=== PATIENT | female | born 1950 | race Caucasian/White ===

== ENCOUNTER 2023-08-11 07:32 | Outpatient (OUT) | payer MEDICARE, OTHER, SELFPAY ==
[2023-08-11 08:01] LABS: Basophils Absolute Auto 0.1 10^3/uL (0.0-0.1); Basophils Percent Auto 1.3 % (0.2-2.0); Eosinophils Absolute Auto 0.5 10^3/uL (0.0-0.7); Eosinophils Percent Auto 5.7 % (0.9-7.0); Hemoglobin 12.5 g/dL (12.0-16.0); Immature Granulocytes Abs Auto 0.04 10^3/uL (0.00-0.03); Immature Granulocytes Pct Auto 0.5 % (0.0-0.5); Mean Corpuscular HGB Conc 31.3 g/dL (29.9-35.2); Mean Corpuscular Hemoglobin 28.3 pg (26.7-34.0); Mean Corpuscular Volume 90.5 fL (81.0-99.0); Mean Platelet Volume 11.7 fL (9.5-13.5); Monocytes Absolute Auto 0.7 10^3/uL (0.3-0.8); Monocytes Percent Auto 8.5 % (1.7-12.0); Platelet Count 172 10^3/uL (150-450); Red Blood Count 4.42 10^6/uL (4.20-5.40); Red Cell Distribution Width 13.2 % (11.0-15.0); White Blood Count 8.4 10^3/uL (4.0-11.0)
[2023-08-11 08:41] LABS: Alanine Aminotransferase 35 U/L (14-59); Albumin Level 3.5 g/dL (3.4-5.0); Alkaline Phosphatase 95 U/L (46-116); Anion Gap 11.9; Aspartate Amino Transferase 23 U/L (15-37); Bilirubin Total 0.5 mg/dL (0.2-1.0); Calcium 9.1 mg/dL (8.5-10.1); Carbon Dioxide 30.5 mmol/L (21.0-32.0); Chloride 106 mmol/L (98-107); Chol HDL Ratio 2.6; Cholesterol 177 mg/dL (<=200); Estimated GFR (African America >60 (>=60); Estimated GFR (Non-African Ame 57 (>=60); Globulin 3.6 g/dL; Glucose 102 mg/dL (74-106); HDL Cholesterol 68 mg/dL (40-60); Potassium 4.4 mmol/L (3.5-5.1); Sodium 144 mmol/L (136-145); Total Protein 7.1 g/dL (6.4-8.2); Triglycerides 108 mg/dL (<=150); VLDL CHOLESTEROL 21.6 mg/dL
[2023-08-11 14:41] LABS: Estimated Average Glucose 128 mg/dL; Glycohemoglobin A1C 6.1 % (4.5-6.2)
== END 2023-08-11 07:33 | disposition home or self-care (01) ==
LOC: LAB 07:37
PROVIDERS: PCP Family Medicine; Visit Provider Family Medicine
DX: E11.40 Type 2 diabetes mellitus with diabetic neuropathy, unspecified (principal)
CPT/HCPCS: 36415; 80053; 80061; 83036; 85025

== ENCOUNTER 2023-09-27 09:01 | Outpatient (OUT) | payer MEDICARE, OTHER, SELFPAY ==
--- NOTE | 2023-09-27 | XR_ITS ---
[address] [address] Patient Name: KEERTHI KNAPP MRN: [id number] date: 1950 Sex: F Assigned Patient Location: Current Patient Location: Accession/Order Number: [id number] Exam Date: 09/27/2023 09:05 Report Date: 09/27/2023 09:26 At the request of: CHER ANDERSON Procedure: XR foot JUAN PABLO min 3V EXAMINATION: XR foot JUAN PABLO min 3V HISTORY: BILATERAL FOOT PAIN COMPARISON: No relevant comparison available. FINDINGS: RIGHT FINDINGS: BONES: No acute fracture or dislocation. Persistent flexion of the toes limits their evaluation. Severe degenerative changes of the first metatarsal-phalangeal joint with [id number] articulation SOFT TISSUES: Negative. No visible soft tissue swelling. OTHER: Negative. LEFT FINDINGS: BONES: No acute fracture or dislocation. Shortened appearance of the first toe likely developmental. Moderate degenerative changes at the second through fifth tarsometatarsal joints with joint space narrowing subchondral cystic changes. SOFT TISSUES: Negative. No visible soft tissue swelling. OTHER: Negative. XR/XR foot JUAN PABLO min 3V IMPRESSION: RIGHT CONCLUSION: Severe first metatarsal-phalangeal joint osteoarthritis LEFT CONCLUSION: Moderate to severe degenerative changes second through fifth tarsometatarsal joints Electronically authenticated by: SHANE LIND Date: 09/27/2023 09:26
== END 2023-09-27 09:02 | disposition home or self-care (01) ==
LOC: EC 09:01
PROVIDERS: PCP Family Medicine; Visit Provider Podiatrist Foot & Ankle Surgery
DX: M79.672 Pain in left foot (principal); M79.671 Pain in right foot; M19.071 Primary osteoarthritis, right ankle and foot
CPT/HCPCS: 73630

== ENCOUNTER 2023-09-30 07:25 | Outpatient (OUT) | payer MEDICARE, OTHER, SELFPAY ==
--- NOTE | 2023-09-30 | CT_ITS ---
The [address] [address] Patient Name: KEERTHI KNAPP MRN: [id number] date: 1950 Sex: F Assigned Patient Location: CT Current Patient Location: Accession/Order Number: [id number] Exam Date: 09/30/2023 07:42 Report Date: 10/02/2023 10:07 At the request of: CHER ANDERSON Procedure: CT foot LT wo con EXAMINATION: CT foot LT wo con HISTORY: Midfoot DJD ; left foot pain across metatarsal; no known injury COMPARISON: No relevant comparison available. TECHNIQUE: Multi-planar CT images were created without and/or with IV contrast according to examination type. Dose reduction techniques were achieved by using automated exposure control and/or adjustment of mA and/or kV according to patient size and/or use of iterative reconstruction technique. FINDINGS: BONES: Narrowing of the second through 5th tarsal-metatarsal joints with near [id number] contact, numerous subchondral cysts, and small periarticular degenerative osteophytes. Mild-moderate degenerative changes of the first metatarsophalangeal joint. Small calcaneal plantar spur. SOFT TISSUES: Negative. No visible soft tissue swelling. EFFUSION: None visible. OTHER: Negative. CT/CT foot LT wo con IMPRESSION: 1. Moderate to marked degenerative changes of the tarsal-metatarsal joints likely contributing patient's symptoms. 2. No appreciable acute bone abnormality. Electronically authenticated by: CHELSY ZALDIVAR Date: 10/02/2023 10:07
--- OUTSIDE RECORDS SUMMARY | 2023-09-30 07:27 | XMS_ITS | CCD ---
Author Organization [facility] Care Team Providers Care Protocol Officer Name Role Phone MJ MISHRA Unavailable Unavailable HOUSEKAUSHIK Unavailable Unavailable HouseKaushik Unavailable Unavailable Unavailable Unavailable Unavailable DO Kaushik Payan Primary Care Provider DO Kaushik Payan Attending Provider MD Demetrio Romero Jr Emergency Provider DO Virgil Hendrickson Emergency Provider [phone] DO Julio C Carlisle Emergency Provider [phone] MD Dat Torrez Attending Provider Dr. Kaushik Payan Elio Primary Care Unava ilable Tad, Dr. Marin Referring Unavaila tahmina Mishra, Dr. Marin Attending Unavaila ble PESHASTIN, DR FAULKNER Admitting Unavailable HOUSE, DR FAULKNER Attending Unavailable HOUSE, DR FAULKNER Primary Care Unavailable HOUSE, DR FAULKNER Consulting Unavailable DO Kaushik Payan Primary Care Provider MD Dat Torrez Attending Provider MD Dat Torrez Attending Provider [phone] DO Kaushik Payan Primary Care Provider [phone] Unavailable Primary Care Provider Unavailabl e Dat TORREZ Attending Unavailable Dat TORREZ Attending Unavailable Dat TORREZ Attending Unavailable Dat TORREZ Admitting Unavailable Dat TORREZ Attending Unavailable Dat Torrez Admitting Unavailable Dat Torrez Attending Unavailable Kaushik Payan Primary Care Unavailable Mj Mishra Admitting Unavailable Mj Mishra Attending Unavailable Kaushik Payan Primary Care Unavailable Dat Torrez Admitting Unavailable Dat Torrez Attending Unavailable Mason, Kaushik [facility] Care Unavailable Eulogio Hartley Admitting Unavailable Eulogio Hartley Attending Unavailable Mercedita, Kaushik Primary Care Unavailable Mercedita DO, Kaushik [facility] Primary Care Provider MJ MISHRA Attending Unavailable PESHASTIN, [facility] Primary [facility] Unavailab FEROZ Payne Attending Unavailable LIZA V, STEPHAN Admitting Unavailable LIZA V, STEPHAN Referring Unavailable LIZA V, STEPHAN Attending Unavailable LIZA V, STEPHAN Attending Unavailable LIZA V, STEPHAN Referring Unavailable HOUSE SR, [facility] Unavai lable LIZA V, STEPHAN Referring Unavailable PESHASTIN SR, [facility] Unavai lable LIZA V, STEPHAN Referring Unavailable LIZA V, STEPHAN Attending Unavailable LIZA V, STEPHAN Admitting Unavailable LIZA V, STEPHAN Referring Unavailable PESHASTIN, KAUSHIK P Attending Unavailable PESHASTIN, KAUSHIK P Primary Care Unavailable PESHASTIN, KAUSHIK Colon Attending Unavailable PESHASTIN, KAUSHIK Primary Care Unavailable Medications Current Medications Medication Drug Class(es) Dates Sig (Normalized) Sig (Original) acetaminophen 325 mg / HYDROcodone bitartrate 5 mg oral tablet (1 source) Opioid Agonist Start: 09-16-2022 take 1 tablet by mouth every four to six hours Hydrocodone-Acetam inophen Active 1 TAB PO EVERY 4-6 HOURS 10 September 16, 2022 atorvastatin 40 mg oral tablet (14 sources) HMG-CoA Reductase Inhibitor Start: 03-23-2019 take 1 tablet by mouth once daily at bedtime atorvastatin (Lipitor) 40 mg tablet Take 1 tablet (40 mg) by mouth once daily at bedtime. 0 05/14/2020 Active Comment on above: Take 40 mg by mouth daily at bedtime. cephalexin 500 mg oral capsule (5 sources) Cephalosporin Antibacterial Start: 09-16-2022 take 500 mg by mouth every twelve hours Cephalexin Active 500 MG PO Q12H 14 September 16, 2022 12:00am Start: 12-11-2021 take 500 mg by mouth twice daily Cephalexin Active 500 MG PO Twice daily 10 December 11, 2021 12:00am hydroCHLOROthiazide 12.5 mg oral tablet (15 sources) Thiazide Diuretic Start: 03-23-2019 take 1 tablet by mouth once daily hydroCHLOROthiazide (HYDRODiuril) 12.5 mg tablet Take 1 tablet (12.5 mg) by mouth once daily. 0 01/17/2020 Active Comment on above: Take 1 tablet by tej every afternoon. hydrocortisone 10 mg/ml topical cream (4 sources) Corticosteroid Start: 11-24-2021 Hydrocortisone Active 1 APPLIC TOPICAL Three times daily 28.4 November 24, 2021 12:00am ketorolac tromethamine 10 mg oral tablet (5 sources) Nonsteroidal Anti-inflammatory Drug, Cyclooxygenase Inhibitor Start: 09-16-2022 take 10 mg by mouth every eight hours Ketorolac Active 10 MG PO Q8H 10 September 16, 2022 12:00am Start: 12-11-2021 take 10 mg by mouth every six hours Ketorolac Active 10 MG PO Q6H 30 December 11, 2021 12:00am lisinopril 10 mg oral tablet (19 sources) Angiotensin Converting Enzyme Inhibitor Start: 08-11-2020 take 1 tablet by mouth once daily lisinopril 10 mg tablet Take 1 tablet (10 mg) by mouth once daily. 0 08/11/2020 Active Start: 03-23-2019 End: 10-20-2020 take 5 mg by mouth once daily Lisinopril Discontinued 5 MG PO Daily March 23, 2019 1:00am October 20, 2020 10:13am Comment on above: Take 1 tablet by [facility] every afternoon. meloxicam 15 mg oral tablet (15 sources) Nonsteroidal Anti-inflammatory Drug Start: 0 take 1 tablet by mouth once daily meloxicam (Mobic) 15 mg tablet Take 1 tablet (15 mg) by mouth once daily. 0 05/12/2020 Active Comment on above: Take 1 tablet by tej every afternoon. morphine sulfate 15 mg oral tablet (4 sources) Opioid Agonist Start: 2 take 7.5 mg by mouth every six hours Morphine Active 7.5 MG PO Q6H 4 December 11, 2021 ondansetron 4 mg oral tablet (9 sources) Serotonin-3 Receptor Antagonist Start: 3 Ondansetron Hcl Active 4 MG PO every 6 to 8 hours September 16, 2022 12:00am Start: 12-11-2021 take 4 mg by mouth e very six hours Ondansetron Active 4 MG PO Q6H December 11, 2021 12:00am Start: 10-21-2021 End: 12-11-2021 take 4 mg by mouth every eight hours Ondansetron Discontinued 4 MG PO Q8H October 21, 2021 12:00am December 11, 2021 10:52am tamsulosin hydrochloride 0.4 mg oral capsule (5 sources) alpha-Adrenergic Jerry Start: 12-11-2021 take 1 capsule by mouth once daily Tamsulosin (Flomax) 0.4 mg capsule Active 0.4 MG PO Daily September 16, 2022 12:00am Completed/Discontinued Medications Medication Drug Class(es) Dates Sig (Normalized) Sig (Original) benoxinate hydrochloride 4 mg/ml / fluorescein sodium 3 mg/ml ophthalmic solution (1 source) Diagnostic Dye Start: 03-07-2023 End: 03-08-2023 fluorescein-benox inate 0.3-0.4 % 1 Drop (FLURESS) diclofenac sodium 75 mg delayed release oral tablet (4 sources) Nonsteroidal Anti-inflammatory Drug Start: 03-23-2019 End: 03-24-2020 take 75 mg by mouth twice daily Diclofenac Sodium Discontinued 75 MG PO Twice daily March 23, 2019 1:00am March 24, 2020 2:14pm dicyclomine hydrochloride 20 mg oral tablet (4 sources) Anticholinergic Start: 07-12-2019 End: 03-24-2020 take 20 mg by mouth four times daily Dicyclomine Discontinued 20 MG PO Four times daily July 12, 2019 12:00am March 24, 2020 2:14pm hydrOXYzine hydrochloride 25 mg oral tablet (4 sources) Antihistamine Start: 11-24-2021 End: 12-11-2021 take 25 mg by mouth every eight hours Hydroxyzine Hcl Discontinued 25 MG PO Q8H November 24, 2021 12:00am December 11, 2021 10:52am metFORMIN hydrochloride 500 mg oral tablet (15 sources) Biguanide Start: 01-14-2023 metFORMIN (GLUCOPHAGE) 500 mg tablet Take 250 mg by mouth two times a day. 0 01/14/2023 Active Start: 05-11-2020 take 0.5 tablet by m outh twice daily at mealtime metFORMIN (Glucophage) 500 mg tablet Take 0.5 tablets (250 mg) by mouth 2 times a day with meals. 0 05/11/2020 Active Start: 05-11-2020 take 0.25 tablet by mouth twice daily metFORMIN HCl - 500 MG Oral Tablet TAKE 0.25 TABLET Twice daily Quantity: 0 Refills: 0 Ordered: 11-May-2020 DO Start : 11-May-2020 Active Start: 03-23-2019 take 250 mg by mouth twice luis armando ly Metformin Active 250 MG PO Twice daily March 23, 2019 1:00am Comment on above: Take 250 mg by mouth two times a day. nitrofurantoin, macrocrystals 25 mg / nitrofurantoin, monohydrate 75 mg oral capsule (4 sources) Nitrofuran Antibacterial Start: End: take 1 capsule by mouth every twelve hours at mealtime Nitrofurantoin Monohyd/M-Cryst (Macrobid) 100 mg capsule Discontinued 100 MG PO Q12H 10 October 21, 2021 12:00am December 11, 2021 10:52am administer with a meal/food; swallow whole; do not open, crush, dissolve , or chew phenylephrine hydrochloride 25 mg/ml ophthalmic solution (1 source) alpha-1 Adrenergic Agonist Start: End: PHENYLephrine 2.5 % 1 Drop (AK-DILATE, TRACIE-SYNEPHRINE) traMADol hydrochloride 50 mg oral tablet (8 sources) Opioid Agonist Start: End: take 50 mg by mouth every four hours Tramadol Discontinued 50 MG PO Q4H 20 December 22, 2020 12:00am December 11, 2021 10:52am tropicamide 10 mg/ml ophthalmic solution (1 source) Anticholinergic Start: End: tropicamide 1 % 1 Drop (MYDRIACYL) verapamil hydrochloride 120 mg extended release oral tablet (20 sources) Calcium Channel Jerry Start: take 2 tablets by mouth once verapamil SR (CALAN SR) 120 mg CR tablet Take 2 tablets by mouth every afternoon. 0 12/21/2022 Active Start: 06-29-2022 take 2 tablets by [facility] once daily Verapamil HCl ER 120 MG Oral Tablet Extended Release TAKE 2 TABLET Daily Quantity: 180 Refills: 3 Ordered: 29-Jun-2022 Mj Mishra MD Start : 29-Jun-2022 Active Start: 09-30-2020 take 1 capsule by mo uth twice daily in the evening verapamil ER (Veralan PM) 120 mg 24 hr capsule Take 1 capsule (120 mg) by mouth 2 times a day. 0 09/30/2020 Active Start: 09-30-2020 take 1 capsule by mo uth once daily before breakfast Verapamil HCl ER 120 MG Oral Capsule Extended Release 24 Hour take 1 capsule by mouth every morning BEFORE BREAKFAST Quantity: 90 Refills: 3 Ordered: 24-Sep-2021 Mj Mishra MD Start : 30-Sep-2020 Active Start: 09-30-2020 take 1 capsule by mo uth once daily Verapamil HCl ER 180 MG Oral Capsule Extended Release 24 Hour take 1 capsule by mouth once daily Quantity: 90 Refills: 3 Ordered: 17-Sep-2021 Mj Mishra MD Start : 30-Sep-2020 Active Start: 03-23-2019 take 150 mg by mouth once daily in the morning Verapamil Active 150 MG PO Every morning March 23, 2019 1:00am Comment on above: Take 2 tablets by mo uth every afternoon. Problems Active Problems Problem Classification Problem Date Documented Da te Episodic/Chronic Allergic reactions (4 sources) Contact dermatitis; Translations: [Unspecified contact dermatitis, unspecified cause] 11-24-2021 Episodic Calculus of urinary tract (7 sources) Urolithiasis ; Translations: [Urinary calculus, unspecified] Onset: 02-28-2023 12-11-2021 Episodic Cataract (2 sources) Bilateral senile combined form cataracts of eyes; Translations: [Combined forms of age-related cataract, bilateral] Onset: 05-08-2023 03-07-2023 Chronic Diabetes mellitus without complication (15 sources) Diabetes mellitus; Translations: [Diabetes mellitus without mention of complication, type II or unspecified type, not stated as uncontrolled] Onset: 07-27-2022 Chronic Disorders of lipid metabolism (13 sources) Hyperlipidemia; Translations: [Other and unspecified hyperlipidemia] Onset: 03-20-2023 03-21-2023 Chronic E Codes: Fall (4 sources) Fall; Translations: [Unspecified fall, initial encounter] 10-01-2021 Episodic Essential hypertension (13 sources) Essential hypertension; Translations: [Unspecified essential hypertension] Onset: 03-20-2023 03-21-2023 Chronic Fluid and electrolyte disorders (4 sources) Dehydration; Translations: [Dehydration] 10-21-2021 Episodic Heart valve disorders (7 sources) Heart murmur; Translations: [Undiagnosed cardiac murmurs] Episodic Immunizations and screening for infectious disease (7 sources) Patient encounter status; Translations: [Other specified vaccination] Episodic Nausea and vomiting (4 sources) Nausea, vomiting and diarrhea; Translations: [Nausea with vomiting, unspecified] 10-21-2021 Episodic Nonspecific chest pain (5 sources) Chest pain, unspecified; Translations: [Chest wall pain] Onset: 10-05-2017 10-01-2021 Episodic Osteoarthritis (1 source) Unspecified osteoarthritis, unspecified site; Translations: [UNSPECIFIED OSTEOARTHRITIS UNS SITE] Onset: 07-29-2022 Chronic Other circulatory disease (4 sources) Elevated blood pressure; Translations: [Elevated blood-pressure reading, without diagnosis of hypertension] 03-23-2019 Episodic Other connective tissue disease (4 sources) Triggering of digit; Translations: [Trigger finger, unspecified finger] 11-03-2020 Episodic Other eye disorders (1 source) Bilateral vitreous degeneration of eyes; Translations: [Vitreous degeneration, bilateral] 03-07-2023 Chronic Other gastrointestinal disorders (4 sources) Diarrhea; Translations: [Diarrhea, unspecified] 07-12-2019 Episodic Other lower respiratory disease (12 sources) Dyspnea; Translations: [Shortness of breath] Onset: 03-20-2023 03-21-2023 Episodic Other lower respiratory disease (1 source) Shortness of breath; Translations: [Shortness of breath] Onset: 03-20-2023 Episodic Other nutritional; endocrine; and metabolic disorders (11 sources) Overweight in adulthood with body mass index of 25 or more but less than 30; Translations: [Overweight] Onset: 03-21-2023 03-21-2023 Episodic Other nutritional; endocrine; and metabolic disorders (4 sources) Loss of appetite; Translations: [Anorexia] 03-23-2019 Episodic Sprains and strains (4 sources) Shoulder strain; Translations: [Strain of unspecified muscle, fascia and tendon at shoulder and upper arm level, right arm, initial encounter] 03-23-2019 Episodic Unclassified (2 sources) Chest pain, unspecified / R07.9(ICD-9) Onset: 10-05-2017 Urinary tract infections (4 sources) Urinary tract infectious disease; Translations: [Urinary tract infection, site not specified] 10-21-2021 Episodic Past or Other Problems Problem Classification Problem Date Documented Da te Episodic/Chronic Unclassified (9 sources) Never smoked tobacco; Translations: [Never a smoker] Unclassified (1 source) Onset: 03-21-2023 03-21-2023 Results Test Name Value Interpretation Reference Range Facility Rad - Other Radiology Report on 09-28-2023 Rad - Other Radiology Report [id number]#1.0 [facility] - Other Lab Results [id number]#1. [facility] 08-10-2023 Patient Handout [id number]#1.0 [facility] [id number]#1.[address] [place] [address] ANES POSTPROC EVALon 024 ANES POSTPROC EVAL HNO ID: [id number] Author: JEAN HAMMER II, DO Service: Anesthesiology Author Type: Anesthesiologist Type: Anesthesia Postprocedure Evaluation Filed: 05/24/2023 14:37 Note Text: POST ANESTHESIA EVALUATION NOTE : 1950 Procedure Summary Date: 05/24/23 Room / Location: [address] Anesthesia Start: 906 Anesthesia Stop: 919 Procedures: PHACOEMULSIFICATION CATARACT IMPLANT INTRAOCULAR LENS W/O ENDOSCOPIC CYCLOPHOTOCOAGULATION (Right: Eye) OPHTHALMIC BIOMETRY BY PARTIAL COHERENCE INTERFEROMETRY W/INTRAOCULAR LENS POWER CALCULATION (Right: Eye) Diagnosis: Combined forms of age-related cataract of both eyes (Combined forms of age-related cataract of both eyes [H25.813]) Surgeons: Stephan Ge V, MD Responsible Provider: Jean Hammer II, DO Anesthesia Type: MAC ASA Status: 3 Anesthesia Type: MAC Last Vitals Vitals Value Taken Time BP 125/60 05/24/2333 Temp 37.1 ?C (98.7 ?F) 05/24/23922 HR SpO2 52 05/24/23 0933 Resp 16 05/24/23932 SpO2 98 % 05/24/23932 Post Anesthesia Patient Status Patient Evaluation: PACU. PACU/ICU Patient Condition: stable. Neurological Status: aware and responsive. Pulmonary Status: breathing comfortably on room air Airway Control: returned to baseline unsupported. Cardiovascular Status: stable. Pain Management: clinically adequate Postoperative Hydration: acceptable. Intraoperative Events: no significant anesthesia events Post Operative Nausea/Vomiting Status: no significant post operative nausea or vomiting Recommendation: continue current plan of care. Anesthesia Observations No Documentation SIGNATURE: Jean Hammer II, DO PATIENT NAME: Jenae Knapp DATE: May 24, 2023 TIME: 2:37 PM CSN: [id number] Normal [facility] ANES PRE-OPon 05-24-2023 ANES PRE-OP HNO ID: [id number] Author: JESUS DOVER MD Service: Anesthesiology Author Type: Anesthesiologist Type: Anesthesia Preprocedure Evaluation Filed: 05/24/2023 08:12 Note Text: ANESTHESIOLOGY DAY OF SURGERY NOTE : 1950 Procedure Information Date/Time: 05/24/23 0900 Procedures: PHACOEMULSIFICATION CATARACT IMPLANT INTRAOCULAR LENS W/O ENDOSCOPIC CYCLOPHOTOCOAGULATION (Right: Eye) OPHTHALMIC BIOMETRY BY PARTIAL COHERENCE INTERFEROMETRY W/INTRAOCULAR LENS POWER CALCULATION (Right: Eye) Location: [address] Surgeons: Stephan Ge V, MD Estimated body mass index is 27.06 kg/m? as calculated from the following: Height as of 04/27/23: 162.6 cm (5' 4 ). Weight as of 04/27/23: 71.5 kg (157 lb 10.1 oz). Most recent hematocrit and potassium results: No results found for this basename: HCT,HEMATOCRIT,K,POTAS SIUM Relevant Problems CARDIO (+) Essential hypertension (+) Heart murmur I - PHYSICAL EVALUATION AIRWAY Patient intubated: No. Tracheostomy tube not present Mallampati: II. TM distance: >3 FB. Neck ROM: full ROM without neurological symptoms. Mouth opening: adequate. DENTAL Dental findings: poor dentition. Additional exam findings: no II - ANESTHESIA PLAN ASA Score: 3 Anesthetic Plan: MAC NPO Status: adequate Beta Jerry Monitoring Plan Monitoring plan: standard ASA. Post Procedure Analgesic Plan Postoperative analgesic plan: parenteral or oral opioids and multimodal analgesia. Patient / Surrogate agrees to blood products: blood products not planned Significant changes in the patient condition since the History and Physical, not otherwise documented in primary service progress note: no. Vitals Value Taken Time BP 165/76 05/24/23756 Pulse 64 05/24/23756 Resp 16 05/24/23756 Temp 36.8 ?C (98.2 ?F) 05/24/23756 SpO2 99 % 05/24/23756 Facility-Administered Medications as of 05/24/2023 Medication Dose Route Frequency - NaCl 0.9% iv infusion 30 mL/hr INTRAVENOUS CONTINUOUS - [COMPLETED] lidocaine HCl (PF) 40 mg/mL 2 mg injection (XYLOCAINE) 0.05 mL RIGHT EYE EVERY 5 MINUTES X 3 DOSES - [COMPLETED] PHENYLephrine 2.5 % 1 Drop (AK-DILATE, TRACIE-SYNEPHRINE) 1 Drop RIGHT EYE EVERY 5 MINUTES X 3 DOSES - [COMPLETED] tropicamide 1 % 1 Drop (MYDRIACYL) 1 Drop RIGHT EYE EVERY 5 MINUTES X 3 DOSES - cyclopentolate 1 % 1 Drop (CYCLOGYL) 1 Drop RIGHT EYE Pre-Op PRN - [COMPLETED] keTORolac 0.5 % 1 Drop (ACULAR) 1 Drop RIGHT EYE q 5 MIN - [COMPLETED] Povidone-Iodine 5 % 30 mL ophth soln (BETADINE) 30 mL RIGHT EYE ONCE - [COMPLETED] balanced salts 15 mL (BSS) 15 mL RIGHT EYE ONCE - [COMPLETED] lidocaine HCl (PF) 40 mg/mL 2 mg injection (XYLOCAINE) 0.05 mL LEFT EYE EVERY 5 MINUTES X 3 DOSES - [COMPLETED] PHENYLephrine 2.5 % 1 Drop (AK-DILATE, TRACIE-SYNEPHRINE) 1 Drop LEFT EYE EVERY 5 MINUTES X 3 DOSES - [COMPLETED] tropicamide 1 % 1 Drop (MYDRIACYL) 1 Drop LEFT EYE EVERY 5 MINUTES X 3 DOSES - [COMPLETED] keTORolac 0.5 % 1 Drop (ACULAR) 1 Drop LEFT EYE q 5 MIN - [COMPLETED] Povidone-Iodine 5 % 30 mL ophth soln (BETADINE) 30 mL LEFT EYE ONCE - [COMPLETED] balanced salts 15 mL (BSS) 15 mL LEFT EYE ONCE Outpatient Medications as of 05/24/2023 Medication Sig - prednisoLONE acetate (PRED FORTE) 1 % ophthalmic suspension USE DIRECTED BY PHYSICIAN, IN OPERATIVE EYE, BEGINNING ONE DAY AFTER SURGERY - keTORolac (ACULAR) 0.5 % ophthalmic solution USE DIRECTED BY PHYSICIAN, IN OPERATIVE EYE, BEGINNING ONE DAY AFTER SURGERY - atorvastatin (LIPITOR) 40 mg tablet Take 40 mg by mouth daily at bedtime. - hydroCHLOROthiazide 12.5 mg tablet Take 1 tablet by mouth every afternoon. - lisinopril (ZESTRIL) 10 mg tablet Take 1 tablet by mouth every afternoon. - meloxicam (MOBIC) 15 mg tablet Take 1 tablet by mouth every afternoon. - metFORMIN (GLUCOPHAGE) 500 mg tablet Take 250 mg by mouth two times a day. - verapamil SR (CALAN SR) 120 mg CR tablet Take 2 tablets by mouth every afternoon. - prednisoLONE acetate (PRED FORTE) 1 % ophthalmic suspension USE DIRECTED BY PHYSICIAN, IN OPERATIVE EYE, BEGINNING ONE DAY AFTER SURGERY - keTORolac (ACULAR) 0.5 % ophthalmic solution USE DIRECTED BY PHYSICIAN, IN OPERATIVE EYE, BEGINNING ONE DAY AFTER SURGERY I have interviewed and examined the patient. I have reviewed the medical record and/or the pre-anesthesia evaluation, pertinent labs, and test results. This contains updated information obtained within 48 hours of Surgery/Procedure. SIGNATURE: Jesus Dover MD PATIENT NAME: Jenae Knapp DATE: May 24, 2023 TIME: 8:12 AM CSN: [id number] Normal [facility] OPERATIVE NOon 05-24-2023 OPERATIVE NO HNO ID: [id number] Author: STEPHAN GE MD Service: Ophthalmology Author Type: Physician Type: Operative Report Filed: 05/24/2023 09:20 Note Text: OPERATIVE REPORT DATE OF SERVICE: May 24, 2023 PRIMARY SURGEON: Stephan Ge M.D. LUMBER STACKER: None [Any nurse listed as assisting or otherwise participating in this patient's care in the operating room has solely performed the duties of a circulating nurse.] Procedure(s) (LRB): PHACOEMULSIFICATION CATARACT IMPLANT INTRAOCULAR LENS W/O ENDOSCOPIC CYCLOPHOTOCOAGULATION (Right) OPHTHALMIC BIOMETRY BY PARTIAL COHERENCE INTERFEROMETRY W/INTRAOCULAR LENS POWER CALCULATION (Right) ANESTHESIA: Topical with monitored anesthesia care. PREOPERATIVE DIAGNOSIS: Combined cataract POSTOPERATIVE DIAGNOSIS: Combined cataract, presbyopia OPERATIVE INDICATIONS: BAT <20/400 OPERATIVE PROCEDURE: The patient was admitted to the operating suite where an IV and BP, EKG, and O2 monitors were placed. The operative eye was pretreated with 2.5% tropicamide and 1% phenylephrine eye drops. The operative eye was confirmed and marked. The intended Intraocular lens model and power circled on the patient's source document was confirmed to match the intraocular lens model and power selected from the Intraocular lens consignment, in accordance with [facility] intraocular lens verification policy. Nasal oxygen was administered. With the patient in the supine position, topical lidocaine 4% was placed in the eye. The patient was then prepped and draped in the usual sterile fashion for intraocular surgery. After a time-out confirming correct patient using two unique identifiers, correct eye, correct operation, presence of allergies, correct implant, and implant sterility date, an eyelid speculum was placed. Under the operating microscope a beveled clear corneal incision was created temporally with a [place] blade then a 2.4 mm keratome. The anterior chamber was reformed with Viscoat, after which the anterior capsule was opened centrally. Using the Utrata forceps a continuous curvilinear capsulorrhexis of approximately 5.5 mm round was created. Gentle hydrodissection was accomplished using preservative-free lidocaine on a 27-gauge cannula. Using the Douglas phacoemulsification unit with the Kelman curved tip, the anterior chamber was entered and the nucleus was removed while it was in the bag. The epinuclear ring was dissected into several segments, then removed using the phacoemulsification unit set to the desired aspiration flow rate and ultrasound parameters. It was necessary to use chopper forceps at various intervals to aid in the fragmentation of the dense lens material. Great care was taken not to violate the posterior capsule. The silicone-tipped I and A instrument was used to remove the cortex and buff off any remaining cataractous material from the posterior capsule. The capsular bag was then reformed with Discovisc and the following Intraocular lens implant Implant Name Type Inv. Item Serial No. Computer Science Professor Lot No. LRB No. Used Action Model No. [id number] [employer] - [id number] Intraocular Lens [id number] [employer] [id number] [employer] Right 1 Implanted [id number] was inserted through the lips of the wound into the capsular bag. Using the I and A instrument, the Discovisc was removed from the anterior chamber and capsular bag, and the implant was centered. Cefuroxime 1mg in 0.1 mL normal saline was introduced into the anterior chamber through the clear corneal incision using a 30 gauge cannula. The wound was checked and found to be watertight. At the end of the procedure, the cornea was clear, the anterior chamber was deep and clear, the pupil was round, the implant was centered within the capsular bag, and the posterior capsule was intact. The eyelid speculum was removed and prednisolone acetate 1% and timolol 0.5% eye drops were administered. A shield was affixed over the eye and the patient was sent to the recovery room, leaving the operating room in excellent condition. ESTIMATED BLOOD LOSS: <1mL SPECIMEN: None FINDINGS: Age-related cataract COMPLICATIONS: None Incision/Procedure Start Time: 9:12 AM Incision Close/Procedure End Time: 9:19 AM - Comanage with Dr Virgen/Lilly; [facility] ([facility] express POD #1 Stephan GE MD [facility]09[facility] JENAE KNAPP ([id number]) 1950 F Date Time Provider Department 05/09/23 STEPHAN GE During your visit today, we recorded the following information about you: Nereida Gutierrez 05/09/2023 9:30 AM Signed Patient is at referring Drs office for their post op appts but did not receive surgery report please fax to [phone]. Nereida Gutierrez 05/09/2023 1:46 PM Signed Called over to surgery center this am and talked to the back office and they are going to fax paperwork over to office. Allergies As of Date: 05/09/2023 (No Known Allergies) Date Reviewed: 05/08/2023 Reviewed by: Nancy Cox RN - Fully Assessed Reason for Visit: Patient Update [1234] Prescriptions as of 05/25/2023 - prednisoLONE acetate (PRED FORTE) 1 % ophthalmic suspension USE DIRECTED BY PHYSICIAN, IN OPERATIVE EYE, BEGINNING ONE DAY AFTER SURGERY - keTORolac (ACULAR) 0.5 % ophthalmic solution USE DIRECTED BY PHYSICIAN, IN OPERATIVE EYE, BEGINNING ONE DAY AFTER SURGERY - prednisoLONE acetate (PRED FORTE) 1 % ophthalmic suspension USE DIRECTED BY PHYSICIAN, IN OPERATIVE EYE, BEGINNING ONE DAY AFTER SURGERY - keTORolac (ACULAR) 0.5 % ophthalmic solution USE DIRECTED BY PHYSICIAN, IN OPERATIVE EYE, BEGINNING ONE DAY AFTER SURGERY - atorvastatin (LIPITOR) 40 mg tablet Take 40 mg by mouth daily at bedtime. - hydroCHLOROthiazide 12.5 mg tablet Take 1 tablet by mouth every afternoon. - lisinopril (ZESTRIL) 10 mg tablet Take 1 tablet by mouth every afternoon. - meloxicam (MOBIC) 15 mg tablet Take 1 tablet by mouth every afternoon. - metFORMIN (GLUCOPHAGE) 500 mg tablet Take 250 mg by mouth two times a day. - verapamil SR (CALAN SR) 120 mg CR tablet Take 2 tablets by mouth every afternoon. Problem List As Of Date 05/09/2023 Noted Resolved Hyperlipidemia [E78.5] 03/20/2023 Heart murmur [R01.1] 04/27/2023 Essential hypertension [I10] 03/04/2022 Diabetes mellitus (HCC) [E11.9] 07/27/2022 Encounter Status:Closed by NEREIDA GUTIERREZ on 05/25/23 [facility] ANES POSTPROC EVALon 024 ANES POSTPROC EVAL HNO ID: [id number] Author: JEAN HAMMER II, DO Service: Anesthesiology Author Type: Anesthesiologist Type: Anesthesia Postprocedure Evaluation Filed: 05/08/2023 12:21 Note Text: POST ANESTHESIA EVALUATION NOTE : 1950 Procedure Summary Date: 05/08/23 Room / Location: [address] Anesthesia Start: 1037 Anesthesia Stop: 1049 Procedures: PHACOEMULSIFICATION CATARACT IMPLANT INTRAOCULAR LENS W/O ENDOSCOPIC CYCLOPHOTOCOAGULATION (Left: Eye) OPHTHALMIC BIOMETRY BY PARTIAL COHERENCE INTERFEROMETRY W/INTRAOCULAR LENS POWER CALCULATION (Left: Eye) Diagnosis: Combined forms of age-related cataract of both eyes (Combined forms of age-related cataract of both eyes [H25.813]) Surgeons: Stephan Ge V, MD Responsible Provider: Jean Hammer II, DO Anesthesia Type: MAC ASA Status: 3 Anesthesia Type: MAC Last Vitals Vitals Value Taken Time BP 121/60 05/08/23 1101 Temp 36.8 05/08/23 1220 Pulse 50 05/08/23 1101 Resp 16 05/08/23 1101 SpO2 96 % 05/08/23 1101 Post Anesthesia Patient Status Patient Evaluation: PACU. PACU/ICU Patient Condition: stable. Neurological Status: aware and responsive. Pulmonary Status: breathing comfortably on room air Airway Control: returned to baseline unsupported. Cardiovascular Status: stable. Pain Management: clinically adequate Postoperative Hydration: acceptable. Intraoperative Events: no significant anesthesia events Post Operative Nausea/Vomiting Status: no significant post operative nausea or vomiting Recommendation: continue current plan of care. Anesthesia Observations No Documentation SIGNATURE: Jean Hammer II, DO PATIENT NAME: Jenae Knapp DATE: May 08, 2023 TIME: 12:20 PM CSN: [id number] Normal [facility] ANES PRE-OPon 05-08-2023 ANES PRE-OP HNO ID: [id number] Author: JEAN HAMMER II, DO Service: Anesthesiology Author Type: Anesthesiologist Type: Anesthesia Preprocedure Evaluation Filed: 05/08/2023 09:57 Note Text: ANESTHESIOLOGY DAY OF SURGERY NOTE : 1950 Procedure Information Date/Time: 05/08/23 1010 Procedures: PHACOEMULSIFICATION CATARACT IMPLANT INTRAOCULAR LENS W/O ENDOSCOPIC CYCLOPHOTOCOAGULATION (Left: Eye) OPHTHALMIC BIOMETRY BY PARTIAL COHERENCE INTERFEROMETRY W/INTRAOCULAR LENS POWER CALCULATION (Left: Eye) Location: [address] Surgeons: Stephan Ge V, MD Estimated body mass index is 27.06 kg/m? as calculated from the following: Height as of 04/27/23: 162.6 cm (5' 4 ). Weight as of 04/27/23: 71.5 kg (157 lb 10.1 oz). Most recent hematocrit and potassium results: No results found for this basename: HCT,HEMATOCRIT,K,POTAS SIUM Relevant Problems CARDIO (+) Essential hypertension (+) Heart murmur I - PHYSICAL EVALUATION AIRWAY Patient intubated: No. Tracheostomy tube not present Mallampati: III. TM distance: >3 FB. Neck ROM: limited extension. Mouth opening: adequate. Short neck: no. Thick neck: no DENTAL Dental findings: teeth intact. Additional exam findings: yes. CARDIOVASCULAR Rhythm: regular Rate: normal PULMONARY Breath sounds clear to auscultation. II - ANESTHESIA PLAN ASA Score: 3 Anesthetic Plan: MAC The patient is a current smoker. NPO Status: adequate Beta Jerry Monitoring Plan Monitoring plan: standard ASA. Post Procedure Analgesic Plan Postoperative analgesic plan: parenteral or oral opioids. Informed Consent Anesthetic risks, benefits, alternatives, personnel and consent discussed: yes. Patient / Responsible Democrat agrees to proceed: yes Patient / Surrogate agrees to blood products: Yes No vitals data found for the desired time range. No current facility-administered medications on file as of 05/08/2023. Outpatient Medications as of 05/08/2023 Medication Sig - prednisoLONE acetate (PRED FORTE) 1 % ophthalmic suspension USE DIRECTED BY PHYSICIAN, IN OPERATIVE EYE, BEGINNING ONE DAY AFTER SURGERY - keTORolac (ACULAR) 0.5 % ophthalmic solution USE DIRECTED BY PHYSICIAN, IN OPERATIVE EYE, BEGINNING ONE DAY AFTER SURGERY - atorvastatin (LIPITOR) 40 mg tablet Take 40 mg by mouth daily at bedtime. - hydroCHLOROthiazide 12.5 mg tablet Take 1 tablet by mouth every afternoon. - lisinopril (ZESTRIL) 10 mg tablet Take 1 tablet by mouth every afternoon. - meloxicam (MOBIC) 15 mg tablet Take 1 tablet by mouth every afternoon. - metFORMIN (GLUCOPHAGE) 500 mg tablet Take 250 mg by mouth two times a day. - verapamil SR (CALAN SR) 120 mg CR tablet Take 2 tablets by mouth every afternoon. I have interviewed and examined the patient. I have reviewed the medical record and/or the pre-anesthesia evaluation, pertinent labs, and test results. This contains updated information obtained within 48 hours of Surgery/Procedure. SIGNATURE: Jean Hammer II, DO PATIENT NAME: Jenae Knapp DATE: May 08, 2023 TIME: 9:57 AM CSN: [id number] Normal [facility] NURSING PROGon 05-08-2023 NURSING PROG HNO ID: [id number] Author: CHARO HEATH RN Service: ? Author Type: Registered Nurse Type: Nursing Progress Note Filed: 05/08/2023 10:43 Note Text: Dr. Ge aware pt is on Cefatanier 300mg po for a r/o UTI, pt does not have a UTI from her urine results that came back, OK to proceed. Pt taken to OR. Normal [facility] OPERATIVE NOon 05-08-2023 OPERATIVE NO HNO ID: [id number] Author: STEPHAN GE MD Service: Ophthalmology Author Type: Physician Type: Operative Report Filed: 05/08/2023 10:50 Note Text: OPERATIVE REPORT DATE OF SERVICE: May 08, 2023 PRIMARY SURGEON: Stephan Ge M.D. LUMBER STACKER: None Procedure(s) (LRB): PHACOEMULSIFICATION CATARACT IMPLANT INTRAOCULAR LENS W/O ENDOSCOPIC CYCLOPHOTOCOAGULATION (Left) OPHTHALMIC BIOMETRY BY PARTIAL COHERENCE INTERFEROMETRY W/INTRAOCULAR LENS POWER CALCULATION (Left) ANESTHESIA: Topical with monitored anesthesia care. PREOPERATIVE DIAGNOSIS: Combined cataract POSTOPERATIVE DIAGNOSIS: Combined cataract, presbyopia OPERATIVE INDICATIONS: BAT <20/400 OPERATIVE PROCEDURE: The patient was admitted to the operating suite where an IV and BP, EKG, and O2 monitors were placed. Nasal oxygen was administered. The operative eye was confirmed, marked, then pretreated with 2.5% tropicamide and 1% phenylephrine eye drops. With the patient in the supine position, topical lidocaine gel 2% was placed in a small ribbon in the lower cul-de-sac. The patient was then prepped and draped in the usual sterile fashion for intraocular surgery. After a time-out confirming correct patient, correct eye, correct operation, presence of allergies, and correct implant, an eyelid speculum was placed. Under the operating microscope a beveled clear corneal incision was created temporally with a [place] blade then a 2.4 mm keratome. The anterior chamber was reformed with Viscoat, after which the anterior capsule was opened centrally. Using the Utrata forceps a continuous curvilinear capsulorrhexis of approximately 5.5 mm round was created. Gentle hydrodissection was accomplished using preservative-free lidocaine on a 27-gauge cannula. Using the Douglas phacoemulsification unit with the Kelman curved tip, the anterior chamber was entered and the nucleus was removed while it was in the bag. The epinuclear ring was dissected into several segments, then removed using the phacoemulsification unit set to the desired aspiration flow rate and ultrasound parameters. It was necessary to use chopper forceps at various intervals to aid in the fragmentation of the dense lens material. Great care was taken not to violate the posterior capsule. The silicone-tipped I and A instrument was used to remove the cortex and buff off any remaining cataractous material from the posterior capsule. The capsular bag was then reformed with Discovisc and the following Intraocular lens implant Implant Name Type Inv. Item Serial No. Computer Science Professor Lot No. LRB No. Used Action Model No. [id number] [employer] - [id number] Intraocular Lens [id number] [employer] [id number] [employer] Left 1 Implanted [id number] was inserted through the lips of the wound into the capsular bag. Using the I and A instrument, the Discovisc was removed from the anterior chamber and capsular bag, and the implant was centered. Cefuroxime 1mg in 0.1 mL normal saline was introduced into the anterior chamber through the clear corneal incision using a 30 gauge cannula. The wound was checked and found to be watertight. At the end of the procedure, the cornea was clear, the anterior chamber was deep and clear, the pupil was round, the implant was centered within the capsular bag, and the posterior capsule was intact. The eyelid speculum was removed and prednisolone acetate 1% and timolol 0.5% eye drops were administered. A shield was affixed over the eye and the patient was sent to the recovery room, leaving the operating room in excellent condition. ESTIMATED BLOOD LOSS: <1mL SPECIMEN: None FINDINGS: Age-related cataract COMPLICATIONS: None Incision/Procedure Start Time: 10:42 AM Incision Close/Procedure End Time: 10:48 AM - Comanage with Dr Carr; [facility] express POD #1 Stephan GE MD [facility] HISTORY PHYSICALon HISTORY PHYSICAL HNO ID: [id number] Author: Dee Ho APRN.BELLE Service: ? Author Type: Nurse Practitioner Type: HANDP Filed: 04/27/2023 1:04 PM Note Text: HISTORY AND PHYSICAL EXAMINATION SERVICE DATE: 04/27/2023 SERVICE TIME: 12:50 PM PRIMARY CARE PHYSICIAN: Kaushik Payan Sr, MD, DO REASON FOR VISIT: Jenae Knapp is a 72 year old female who is scheduled for PHACOEMULSIFICATION CATARACT IMPLANT INTRAOCULAR LENS W/O ENDOSCOPIC CYCLOPHOTOCOAGULATION - Left with Stephan Ge V, MD on 05/08/2023 BILATERAL at the request of Dr. Stephan Ge V for consultation. My final recommendation will be communicated back to the requesting physician by way of shared medical record or letter. The patient has the following: ACTIVE PROBLEM LIST Hyperlipidemia Heart Murmur Essential Hypertension Diabetes Mellitus (Hcc) Subjective CHIEF COMPLAINT: Impaired Vision HPI: Patient is a 72 year old female presenting to pre-anesthesia consultation. Patient complains of decreased visual acuity, blurred vision, and difficulty with night driving for > 6 months. Found to have bilateral cataracts. Patient denies pain. No relieving factors, patient has opted for surgical treatment of cataracts. PAST MEDICAL HISTORY Diagnosis Date Cataracts, both eyes Diabetes mellitus (HCC) High cholesterol HTN (hypertension) PAST SURGICAL HISTORY Procedure Laterality Date PAST SURGICAL HISTORY OF mamaplasty 1971 PAST SURGICAL HISTORY OF cescerian section PAST SURGICAL HISTORY OF tubes tied PAST SURGICAL HISTORY OF back surgery with fusion 1984 PAST SURGICAL HISTORY OF gall bladder 2016 PAST SURGICAL HISTORY OF foot surgery heel spur PAST SURGICAL HISTORY OF hysterectomy PAST SURGICAL HISTORY OF right middle finger surgery, left 2 center fingers FAMILY HISTORY Problem Relation Age of Onset Anesthesia Problems No Family History SOCIAL HISTORY: Social History Tobacco Use Smoking status: Never Smokeless tobacco: Never Vaping Use Vaping Use: Never used Substance Use Topics Alcohol use: Not Currently Drug use: Never MEDICATIONS: Prior to Admission medications as of 04/27/23 1251 Medication Sig Last Dose Taking atorvastatin (LIPITOR) 40 mg tablet Take 40 mg by mouth daily at bedtime. Taking Yes hydroCHLOROthiazide 12.5 mg tablet Take 1 tablet by mouth every afternoon. Taking Yes lisinopril (ZESTRIL) 10 mg tablet Take 1 tablet by mouth every afternoon. Taking Yes meloxicam (MOBIC) 15 mg tablet Take 1 tablet by mouth every afternoon. Taking Yes metFORMIN (GLUCOPHAGE) 500 mg tablet Take 250 mg by mouth two times a day. Taking Yes verapamil SR (CALAN SR) 120 mg CR tablet Take 2 tablets by mouth every afternoon. Taking Yes No medication comments found. CURRENT ALLERGIES: ALLERGIES No Known Allergies Covid Immunization Dates Overdue - Covid-19 Vaccine () Overdue since 12/30/2022 02/11/2021 Outside Immunization: [place] SARS-CoV-2 07/31/2020 Outside Immunization: [place] SARS-CoV-2 07/10/2020 Outside Immunization: [place] SARS-CoV-2 REVIEW OF SYSTEMS: PAIN ASSESSMENT: General: No weight loss, malaise or fevers. Neuro: No history of TIA's, stroke, DRILLER OPERATOR tumor, impaired sensorium, hemiplegia, paraplegia or quadraplegia. No neurological symptoms or problems. Respiratory: No history of current cough or dyspnea, or pneumonia in the past 6 weeks. No history of respiratory/pulmonary symptoms or problems. Cardiovascular: Negative for Recent [place], Angina, Arrhythmia, Chest Pain, DVT/PE + HTN + HLD GI: No history of GI symptoms or problems. No history of esophageal varices, recent ascites, or ETOH greater than 2 drinks per day. : No history of dysuria, frequency or incontinence,, stones or chronic kidney disease Endocrine: Diabetes Mellitus on oral agent Hematology: No history of bleeding or clotting disorder. Pt is not taking anti-coagulation or platelet medications. No history of hematological symptoms or problems. Oncology: No history of CA metastasis, chemo within 30 days, or radiotherapy within 90 days. Has not lost 10% of body wt in 6 months. No history of oncological symptoms or problems. Psych: No history of psychiatric symptoms or problems. Musculoskeletal: Back pain Skin: Negative for lesions, rash and itching. Objective PHYSICAL EXAM: VITALS: BP 151/59 Pulse 52 Temp (Src) 97.7 (Temporal) Resp 14 Ht 5' 4 (1.63m) Wt 157 lb 10.1 oz (71.5kg) SpO2 99% BMI 27.04 kg/(m2). General: Alert and oriented, No acute distress Skin: Normal color, no rash, no lesions. HEENT: EOM, pupils equal, round and reactive. Cardiovascular: Normal S1 AND S2, no rubs, murmurs or gallops. No JVD. Pulse regular. Lungs: Normal breath sounds, no wheezes or crackles. Extremities: No deformity, no edema or tenderness, no joint swelling or clubbing. Neurological: Normal cognition and motor skills. D (more content not included)... Normal [facility] Alanine Aminotransferaseon 1 05-10-2022 ALT [Catalytic activity/Vol] 14 U/L Normal 7-52 [facility] Comment on above: Performed By: #### B MP, LIPID, ALT, AST #### [address] Aspartate Amino Transferaseo n 03-10-2023 AST [Catalytic activity/Vol] 15 U/L Normal 13-39 [facility] Comment on above: Performed By: #### B MP, LIPID, ALT, AST #### [address] Basic Metabolic Panelon 11- Anion gap [Moles/Vol] 10.2 mmol/L Normal 6.0-15.0 [facility] Comment on above: Performed By: #### B MP, LIPID, ALT, AST #### [address] Calcium [Mass/Vol] 9.5 mg/dL Normal 8.6-10.3 [facility] Comment on above: Performed By: #### B MP, LIPID, ALT, AST #### [address] Chloride [Moles/Vol] 106 mmol/L Normal 98-107 [facility] Comment on above: Performed By: #### B MP, LIPID, ALT, AST #### [address] CO2 [Moles/Vol] 28.8 mmol/L Normal 21.0-31.0 [facility] Comment on above: Performed By: #### B MP, LIPID, ALT, AST #### [facility] [address] Creatinine [Mass/Vol] 0.98 mg/dL Normal 0.60-1.20 [facility] Comment on above: Performed By: #### B MP, LIPID, ALT, AST #### [facility] [address] [place] [address] [place] GFR/1.73 sq M.predicted MDRD (S/P/Bld) [Vol rate/Area] mL/min/{1.73_m2} Normal [facility] Comment on above: Performed By: #### B MP, LIPID, ALT, AST #### [facility] [address] Glucose [Mass/Vol] 99 mg/dL Normal 70-100 [facility] Comment on above: Result Comment: [facility][note 3] Glucose Reference Range is dependent on time and content of last meal. Glucose of more than 200 mg/dL in a nonstressed, ambulatory subject supports the diagnosis of Diabetes Mellitus. ADA recommended reference range Performed By: #### B MP, LIPID, ALT, AST #### [address] Potassium [Moles/Vol] 5.0 mmol/L Normal 3.5-5.1 [facility] Comment on above: Performed By: #### B MP, LIPID, ALT, AST #### [address] Sodium [Moles/Vol] 140 mmol/L Normal 136-145 [facility] Comment on above: Performed By: #### B MP, LIPID, ALT, AST #### [facility] [address] [place] [address] [place] Urea nitrogen [Mass/Vol] 24 mg/dL Normal 7-25 [facility] Comment on above: Performed By: #### B MP, LIPID, ALT, AST #### [facility] [address] Lipid Panelon 03-10-2023 Cholesterol [Mass/Vol] 179 mg/dL Normal 140-200 [facility] Comment on above: Result Comment: Chol less than 200 mg/dl low risk Chol 201-239 mg/dl borderline risk Chol 240 mg/dl and greater high risk Performed By: #### B MP, LIPID, ALT, AST #### [facility] [address] Cholesterol in HDL [Mass/Vol] 59 mg/dL Normal 23-92 [facility] Comment on above: Result Comment: HDL CHOL ATP-III CLASSIFICATION Cardiovascular Risk HDL > or equal to 60 mg/dL LOW HDL < 40 mg/dL HIGH Performed By: #### B MP, LIPID, ALT, AST #### [facility] [address] Cholesterol.total/Cho lesterol in HDL [Mass ratio] 3.0 {ratio} Normal <5.0 [facility] Comment on above: Result Comment: PERF ORMED BY: [place] [address] PATHOLOGIST HEAD CD REACTOR OPERATOR COREY AUSTIN M.D. Performed By: #### B MP, LIPID, ALT, AST #### [facility] [address] LDL Cholesterol,Calculate d 97 mg/dL Normal 0-100 [facility] Comment on above: Result Comment: LDL ATP III CLASSIFICATION LDL less than 100 mg/dL Optimal LDL 100-129 mg/dL Near or above optimal LDL 130-159 mg/dL Borderline high LDL 160-189 mg/dL High LDL greater than 189 mg/dL Very high Performed By: #### B MP, LIPID, ALT, AST #### [facility] [address] Triglyceride w/Reflex 117 mg/dL Normal 0-149 [facility] Comment on above: Result Comment: TRIG ATP III CLASSIFICATION TRIG less than 150 mg/dL Normal TRIG 150-199 mg/dL Borderline high TRIG 200-500 mg/dL High TRIG greater than 500 mg/dL Very high Standard traceable to the Center for Disease Conrtrol and Prevention (CDC) test method. Performed By: #### B MP, LIPID, ALT, AST #### [facility] [address] VLDL CHOLESTEROL 23 mg/dL Normal [facility] Comment on above: Performed By: #### B MP, LIPID, ALT, AST #### [facility] [address] RAD - CT Reporton 03-08-2023 RAD - CT Report [id number] 0TIFF [facility] Ambulatory Visit Summaryon 1 05-07-2022 Ambulatory Visit Summary JENAE KNAPP :1950 Visit Date:03/07/2023 Ambulatory Visit Instructions Your Diagnosis Kidney stone Tests Performed Urnls Dip Stick Auto w/o Microscopy POC 00580 XR Abdomen 1 View -- Results Pending -- Please visit your patient portal for your results or contact your primary care physician. Your Care Team Attending Physician - Dat TORREZ MD Primary Care Physician - Kaushik Payan DO This Is Your Medications List Contact prescribing physician if questions or concerns atenolol (atenolol 50 mg Tab) atorvastatin diclofenac esomeprazole (Nexium 40 mg Cap-EC) hydrochlorothiazide lisinopril meloxicam (meloxicam 15 mg oral tablet) metformin psyllium (Metamucil 3.4 g/5.2 g oral powder) verapamil (verapamil 120 mg oral tablet) Procedures Performed percutaneous plantar fasciotomy, ultrasonic guided with Tenex device (04/03/2014), section, Cholecystectomy, Hemorrhoidectomy, Lumbar laminectomy and excision of intradural spinal lesion, Mammoplasty, Procedure on back, LAWANDA - Total abdominal hysterectomy, Tonsillectomy. Discharge Vitals Heart Rate (Peripheral) 70 Blood Pressure 138/63 What to do next Scheduled Follow-Up Appointments Monday 9:45 AM EST With: Dat TORREZ MD Where: [facility] Patient Educationon 03-07-20 23 Patient Education Nephrology Dietary Guidelines to Help Prevent Kidney Stones Kidney stones are deposits of minerals and salts that form inside your kidneys. Your risk of developing kidney stones may be greater depending on your diet, your lifestyle, the medicines you take, and whether you have certain medical conditions. Most people can lower their chances of developing kidney stones by following the instructions below. Your dietitian may give you more specific instructions depending on your overall health and the type of kidney stones you tend to develop. What are tips for following this plan? Reading food labels ? Choose foods with no salt added or low-salt labels. Limit your salt (sodium) intake to less than 1,500 mg a day. ? Choose foods with calcium for each meal and snack. Try to eat about 300 mg of calcium at each meal. Foods that contain 200?500 mg of calcium a serving include: ? 8 oz (237 mL) of milk, juzuqwr-bpnjeojkxvkp-r airy milk, and calcium-fortifiedfruit juice. Calcium-fortified means that calcium has been added to these drinks. ? 8 oz (237 mL) of kefir, yogurt, and soy yogurt. ? 4 oz (114 g) of tofu. ? 1 oz (28 g) of cheese. ? 1 cup (150 g) of dried figs. ? 1 cup (91 g) of cooked broccoli. ? One 3 oz (85 g) can of sardines or mackerel. Most people need 1,000?1,500 mg of calcium a day. Talk to your dietitian about how much calcium is recommended for you. Shopping ? Buy plenty of fresh fruits and vegetables. Most people do not need to avoid fruits and vegetables, even if these foods contain nutrients that may contribute to kidney stones. ? When shopping for convenience foods, choose: ? Whole pieces of fruit. ? Pre-made salads with dressing on the side. ? Low-fat fruit and yogurt smoothies. ? Avoid buying frozen meals or prepared deli foods. These can be high in sodium. ? Look for foods with live cultures, such as yogurt and kefir. ? Choose high-fiber grains, such as whole-wheat breads, oat bran, and wheat cereals. Cooking ? Do not add salt to food when cooking. Place a salt shaker on the table and allow each person to add his or her own salt to taste. ? Use vegetable protein, such as beans, textured vegetable protein (TVP), or tofu, instead of meat in pasta, casseroles, and soups. Meal planning ? Eat less salt, if told by your dietitian. To do this: ? Avoid eating processed or pre-made food. ? Avoid eating fast food. ? Eat less animal protein, including cheese, meat, poultry, or fish, if told by your dietitian. To do this: ? Limit the number of times you have meat, poultry, fish, or cheese each week. Eat a diet free of meat at least 2 days a week. ? Eat only one serving each day of meat, poultry, fish, or seafood. ? When you prepare animal protein, cut pieces into small portion sizes. For most meat and fish, one serving is about the size of the palm of your hand. ? Eat at least five servings of fresh fruits and vegetables each day. To do this: ? Keep fruits and vegetables on hand for snacks. ? Eat one piece of fruit or a handful of berries with breakfast. ? Have a salad and fruit at lunch. ? Have two kinds of vegetables at dinner. ? Limit foods that are high in a substance called oxalate. These include: ? Spinach (cooked), rhubarb, beets, sweet potatoes, and Cymraes chard. ? Peanuts. ? Potato chips, gambian fries, and baked potatoes with skin on. ? Nuts and nut products. ? Chocolate. ? If you regularly take a diuretic medicine, make sure to eat at least 1 or 2 servings of fruits or vegetables that are high in potassium each day. These include: ? Avocado. ? Banana. ? Mariposa, prune, carrot, or tomato juice. ? Baked potato. ? Cabbage. ? Beans and split peas. Lifestyle ? Drink enough fluid to keep your urine pale yellow. This is the most important thing you can do. Spread your fluid intake throughout the day. ? If you drink alcohol: ? Limit how much you use to: ? 0?1 drink a day for women who are not . ? 0?2 drinks a day for men. ? Be aware of how much alcohol is in your drink. In the [place] one drink equals one 12 oz bottle of beer (355 mL), one 5 oz glass of wine (148 mL), or one 1? oz glass of hard liquor (44 mL). ? Lose weight if told by your health care provider. Work with your dietitian to find an eating plan and weight loss strategies that work best for you. General information ? Talk to your health care provider and dietitian about taking daily supplements. You may be told the following depending on your health and the cause of your kidney stones: ? Not to take supplements with vitamin C. ? To take a calcium supplement. ? To take a daily probiotic supplement. ? To take other supplements such as magnesium, fish oil, or vitamin B6. ? Take utki-dar-qjqragv and prescription medicines only as told by your health care provider. These include supplements. What foods should I limit? Limit your in (more content not included)... Normal [facility] Urology Office/Clinic Noteon 03-07-2023 Urology Office/Clinic Note Chief Complaint Pt is here for 7 month f/u w/ KUB HPI Staff 6 month follow up w/KUB. Pt was seen at [facility] on 09/16/22 due to flank pain and chills. CT SCAN done 09/16/22. KUB done on 02/28/23 showed no suspicious urinary tract calculi. Pt states she passed a kidney stone on 09/21/22 and took it to [facility] for analysis which showed 80% calcium oxalate monohydrate 20% calcium oxalate dihydrate. Dysuria: denies Incomplete bladder emptying: denies Hematuria: denies Frequency: denies Urgency: denies Nocturia: 1-2x a night Stream: steady stream Leaking: mild Post void dripping: denies Wearing pads/ Depends: denies Urge incontinence: denies Stress incontinence: denies Incontinence without Sensory Awareness: denies Abdominal pain: denies Flank pain: denies Sexual complaints: _ History of Present Illness Tests reviewed: reviewed UA and KUB. I have reviewed the previous health record information and history for this patient from . I have reviewed and verified the staff HPI to be accurate for this encounter. There have been no associated fever, chills, flank pain, or blood in the urine. Denies any urinary infections since last encounter. Review of Systems PHQ Score Initial Depression Screen Score: 0 ROS - Provider Constitutional: denies weight loss, denies hot flashes. Eyes: denies eye problems. Gastrointestinal: denies nausea, denies vomiting. Cardiovascular: denies chest pain or angina. Integumentary: no dryness Musculoskeletal: denies musculoskeletal symptoms. ENMT: denies otolaryngeal symptoms. Respiratory: no shortness of breath. Heme/Lymph: denies easy bleeding tendency, denies easy bruising tendency. Psychiatric: no confusion, no anxiety. Genitourinary: See HPI. Physical Exam Vitals & Measurements HR: 70(Peripheral) BP: 138/63 General Appearance: alert , no acute distress, well nourished, well developed female. Genitourinary: bladder nonpalpable, no flank pain. Assessment/Plan 1. Kidney stone (N20.0: Calculus of kidney) CT AP wo con 12/11/21 - Stone at the right lower pole measuring 3 mm. KUB 12/22/21 - Right nephrolithiasis as seen on prior CT scan. KUB 08/05/22 - Similar right nephrolithiasis. [facility] ER on 09/16/22 due to flank pain and chills. CT AP wo Con 09/16/22 - obstructing 4mm Rt UVJ stone and moderate hydro and hydroureter Pt states she passed a kidney stone on 09/21/22 and took it to [facility] for analysis which showed 80% calcium oxalate monohydrate and 20% calcium oxalate dihydrate. KUB 02/28/23 - no suspicious urinary tract calculi. UA today shows trace leuks. Reviewed KUB with pt, no stones. Counseled pt on dietary modifications to prevent future stones. Discussed doing a metabolic work up if the pt felt this was needed. Pt states that she does not feel this is needed. Follow up in 1 yr w/KUB. All questions/concerns were discussed. Pt to call the office if she encounters any issues prior. Pt acknowledges understanding. -Dietary Modifications. -Will order KUB. Overall this patient is here for her kidney stone follow-up. As noted above she passed a 4 mm calcium oxalate stone back in August. CT scan at that time and the current KUB demonstrates no other stones in the kidneys themselves. This justifies a 1 year follow-up. We have previously offered her a metabolic work-up and she continues to just want to increase fluids to keep the urine dilute and clear. She knows lemonade is a good fluid intake choice. Follow-up 1 year Follow-up With When Contact Information SHAN RICHARDS, Dat Colon, URL In [address] [place] [id number]- Additional Instructions: w/KUB Patient Education Dietary Guidelines to Help Prevent Kidney Stones I, Chinyere Chang, personally scribed for Dr. Torrez on 03/07/2023 10:11:35. . Documentation recorded by the scribe, Chinyere Chang, accurately reflects the services(s) I performed and decisions made by me. Authenticated by Dr. Torrez on 03/07/2023 10:12:29. Portions of this record may have been created with voice recognition artificial intelligence software, specifically [employer] and or [employer]. Substitutions may have occurred due to the inherent limitations of voice recognition and artificial intelligence software. Problem List/Past Medical History Ongoing Acid reflux Arthritis Asymptomatic microscopic hematuria Prince's esophagus Diabetic acidosis, type II Hematuria HTN - Hypertension Hyperlipidemia Irregular heart rhythm Kidney stone Kidney stones Murmur, heart Plantar fasciitis Urethral stricture Historical Mitral valve prolapse Procedure/Surgical History percutaneous plantar fasciotomy, ultrasonic guided with Tenex device (04/03/2014), section, Cholecystectomy, Hemorrhoidectomy, Lumbar laminectomy and excision of intradural spinal lesion, Mammoplasty, P (more content not included)... Normal [facility] Comment on above: Result Comment: Elec tronically Signed By: Dat TORREZ MD\.br\Date and Time Signed: 03/07/23 10:13 EST\.br\Electronically Co-Signed By: Chinyere Chang\.br\Date and Time Co-Signed: 03/07/23 10:11 EST RAD - MISCon 03-06-2023 RAD - MISC [id number] 0TIFF [facility] XR KUBon 02-28-2023 XR KUB [facility] [address] XRay Report Signed Patient: Jenae Knapp MR#: [id number] 4 : 1950 Acct:[id number] Age/Sex: 72 / F ADM Date: 02/28/23 Loc: XD Room: [facility] Att[facility] Dr: Dat Torrez MD Copies to: Dat Torrez MD Ordering Provider: Dat Torrez MD Date of Service: 02/28/23 XR/XR KUB: N20.0 KUB: CLINICAL INFORMATION: Follow-up kidney stones. COMPARISON: KUB 08/05/2022. FINDINGS: No definite urinary tract calculus is seen on today's study. No evidence of bowel obstruction or free air. Post cholecystectomy clips. Osseous structures demonstrate degenerative change. XR/XR KUB IMPRESSION: NO SUSPICIOUS URINARY TRACT CALCULUS IS SEEN ON TODAY'S STUDY. Impression dictated by: Jesus Neely Jr., D.ODerik02/28/2023 11:45 AM Dictation Location: [place] [address] Transcribed By: [facility] 02/28/23 1145 Dictated By: Jesus Neely Jr, DO 02/28/23 1144 Signed By: 02/28/23 1145 [facility] Calculus Analysison 09-29-19 23 Calcium oxalate dihydrate Infrared spectroscopy (Stone) [Mass fraction] 20 % Invalid Interpretation Code [facility] Comment on above: Performed By: #### 1 [id number] #### [facility] [address] [place] [address] Calcium oxalate monohydrate (Stone) [Mass fraction] 80 % Invalid Interpretation Code [facility] Comment on above: Performed By: #### 1 [id number] #### [facility] [address] [place] [address] Color (Stone) Brown Invalid Interpretation Code [facility] Comment on above: Performed By: #### 1 [id number] #### [facility] [address] [place] [address] Composition Comment Invalid Interpretation Code [facility] Comment on above: Result Comment: Perc entage (Represents the % composition) Performed By: #### 1 [id number] #### [facility] [address] [place] [address] Disclaimer: Comment Invalid Interpretation Code [facility] Comment on above: Result Comment: This test was developed and its performance characteristics determined by [employer]. It has not been cleared or approved by the Food and Drug Administration. Performed at: [facility] [employer] [facility] [address] [place], [place] [id number] PhD Cathy Quintanilla Performed By: #### 1 [id number] #### [facility] [address] [place] [address] Laboratory comment Tom (Report) Comment Invalid Interpretation Code [facility] Comment on above: Result Comment: Erica kelley questions regarding Calculi Analysis [facility] at: [phone]. Performed By: #### 1 [id number] #### [facility] [address] [place] [address] Please Note: Comment Invalid Interpretation Code [facility] Comment on above: Result Comment: Calc henry report will follow via computer, mail or company miner blasting delivery. Performed By: #### 1 [id number] #### [facility] [address] [place] [address] Size (Stone) [Entitic vol] 3x4 Invalid Interpretation Code [facility] Comment on above: Result Comment: Sing le piece received. Performed By: #### 1 [id number] #### [facility] [address] [place] [address] Specimen source subject Nom Comment Invalid Interpretation Code [facility] Comment on above: Result Comment: Not provided Performed By: #### 1 [id number] #### [facility] [address] [place] [address] Stone Photo Comment Invalid Interpretation Code [facility] Comment on above: Result Comment: Phot ograph will follow under a separate cover Performed By: #### 1 [id number] #### [facility] [address] [place] [address] Weight (Stone) 29 mg Invalid Interpretation Code [facility] Comment on above: Performed By: #### 1 [id number] #### [facility] [address] [place] [address] ED Note-Physicianon 05-24-20 23 ED Note-Physician [id number] 0CD:127 Normal [facility] CT abdomen pelvis wo conon 0 09-16-2022 CT abdomen pelvis wo con [facility] [place] [address] [place] [address] CT Scan Report Signed Patient: Jenae Knapp MR#: [id number] 4 : 1950 Acct:[id number] Age/Sex: 72 / F ADM Date: 09/16/22 Loc: ER Room: Type: [facility] ER Attending Dr: Copies to: Eulogio Hartley DO Ordering Provider: Eulogio Hartley DO Date of Service: 09/16/22 CT/CT abdomen pelvis wo con: flank pain CT Abdomen and Pelvis withoutcontrast TECHNIQUE: Axial imaging with 2-D reconstruction. . The CT exam was performed using one or more the following dose reduction techniques: Automated exposure control, adjustment of the MA and/or Kv according to patient size, or use of the iterative reconstruction technique. COMPARISON: 12/11/21 History: RIGHT flank pain since Monday. Prior cholecystectomy and hysterectomy LIMITATIONS: None LOWER THORAX Unremarkable LIVER: Unremarkable GALLBLADDER: Cholecystectomy clips identified. BILE DUCTS: No dilatation SPLEEN: Unremarkable PANCREAS: Unremarkable ADRENAL GLANDS: Unremarkable KIDNEYS:The RIGHT perinephric stranding. A moderate RIGHT hydronephrosis and hydroureter. Obstructing 4 mm RIGHT UVJ stone. Unremarkable LEFT kidney. AORTA: No abdominal aortic aneurysm identified. RETROPERITONEUM: No significant retroperitoneal abnormalities identified. MESENTERY:Unremarkable SMALL BOWEL: The small bowel loops are nondistended. APPENDIX: The appendix is normal. COLON: Distal colonic diverticulosis. URINARY BLADDER: Urinary bladder wall thickening. Consider underdistention versus cystitis. REPRODUCTIVE SYSTEM: The uterus is absent. PNEUMOPERITONEUM: None PERITONEAL FLUID:None BONY STRUCTURES: Scoliosis and degenerative change. ABDOMINAL WALL: Unremarkable CT/CT abdomen pelvis wo con IMPRESSION: Obstructing 4 mm RIGHT UVJ calculus with moderate hydronephrosis and hydroureter. Impression dictated by: Jose M Davison M.D.09/16/2022 10:00 AM Dictation Location: [place] [address] Transcribed By: [facility] 09/16/22 1000 Dictated By: Jose M Davison DO 09/16/22 0951 Signed By: 09/16/22 1000 Normal [facility] Complete Blood Count Auto Di ffon 09-16-2022 Basophils (Bld) [#/Vol] 0.1 10*3/uL Normal 0.0-0.2 [facility] Comment on above: Result Comment: PERF ORMED BY: [place] [address] PATHOLOGIST HEAD CD REACTOR OPERATOR COREY AUSTIN M.D. Performed By: #### C MP, CBC, LIPASE #### [address] Basophils/100 WBC (Bld) 0.7 % Normal . [facility] Comment on above: Performed By: #### C MP, CBC, LIPASE #### [address] Eosinophils (Bld) [#/Vol] 0.2 10*3/uL Normal 0.0-0.45 [facility] Comment on above: Performed By: #### C MP, CBC, LIPASE #### [address] Eosinophils/100 WBC (Bld) 1.7 % Normal . [facility] Comment on above: Performed By: #### C MP, CBC, LIPASE #### [address] Erythrocyte distribution width (RBC) [Ratio] 14.2 % Normal 11.9-15.3 [facility] Comment on above: Performed By: #### C MP, CBC, LIPASE #### [address] Hematocrit (Bld) [Volume fraction] 41.0 % Normal 34.0-46.4 [facility] Comment on above: Performed By: #### C MP, CBC, LIPASE #### [address] Hemoglobin (Bld) [Mass/Vol] 13.5 g/dL Normal 11.8-15.4 [facility] Comment on above: Performed By: #### C MP, CBC, LIPASE #### [place] [address] [place] Lymphocytes (Bld) [#/Vol] 1.2 10*3/uL Normal 1.00-4.8 [facility] Comment on above: Performed By: #### C MP, CBC, LIPASE #### [address] Lymphocytes/100 WBC (Bld) 10.2 % Normal . [facility] Comment on above: Performed By: #### C MP, CBC, LIPASE #### [address] MCH (RBC) [Entitic mass] 28.1 pg Normal 24.7-34.3 [facility] Comment on above: Performed By: #### C MP, CBC, LIPASE #### [address] MCV (RBC) [Entitic vol] 85.7 fL Normal 80-100 [facility] Comment on above: Performed By: #### C MP, CBC, LIPASE #### [address] Mean Corpuscular HGB Conc 32.8 g/dL Normal 32.0-35.0 [facility] Comment on above: Performed By: #### C MP, CBC, LIPASE #### [address] Monocytes (Bld) [#/Vol] 1.1 10*3/uL High 0.0-0.8 [facility] Comment on above: Performed By: #### C MP, CBC, LIPASE #### [address] Monocytes/100 WBC (Bld) 16.38 % Normal 0.00-20.00 [facility] Comment on above: Performed By: #### C MP, CBC, LIPASE #### [address] Monocytes/100 WBC (Bld) 9.0 % Normal . [facility] Comment on above: Performed By: #### C MP, CBC, LIPASE #### [address] Neutrophils (Bld) [#/Vol] 9.5 10*3/uL High 1.8-7.7 [facility] Comment on above: Performed By: #### C MP, CBC, LIPASE #### [facility] [address] Neutrophils/100 WBC (Bld) 78.4 % Normal . [facility] Comment on above: Performed By: #### C MP, CBC, LIPASE #### [facility] [address] NRBC% 0.0 /100{WBC} Normal 0-0.5 [facility] Comment on above: Performed By: #### C MP, CBC, LIPASE #### [address] Platelet mean volume (Bld) [Entitic vol] 9.4 fL Normal 6.3-10.7 [facility] Comment on above: Performed By: #### C MP, CBC, LIPASE #### [address] Platelets (Bld) [#/Vol] 217 10*3/uL Normal 150-450 [facility] Comment on above: Performed By: #### C MP, CBC, LIPASE #### [address] RBC (Bld) [#/Vol] 4.79 10*6/uL Normal 3.60-5.00 [facility] Comment on above: Performed By: #### C MP, CBC, LIPASE #### [address] WBC (Bld) [#/Vol] 12.1 10*3/uL High 3.8-11.6 [facility] Comment on above: Performed By: #### C MP, CBC, LIPASE #### [address] Comprehensive Metabolic Pane viola 09-16-2022 Albumin [Mass/Vol] 4.5 g/dL Normal 3.5-5.7 [facility] Comment on above: Performed By: #### C MP, CBC, LIPASE ####[place] [address] [place] [address] [facility] Albumin/Globulin [Mass ratio] 1.4 {ratio} Normal [facility] Comment on above: Performed By: #### C MP, CBC, LIPASE ####[place] [address] [place] [address] [facility] ALP [Catalytic activity/Vol] 96 U/L Normal 34-104 [facility] Comment on above: Performed By: #### C MP, CBC, LIPASE ####[place] [address] [place] [address] [facility] ALT [Catalytic activity/Vol] 16 U/L Normal 7-52 [facility] Comment on above: Performed By: #### C MP, CBC, LIPASE ####[place] [address] [place] [address] [facility] Anion gap [Moles/Vol] 11.6 mmol/L Normal 6.0-15.0 [facility] Comment on above: Performed By: #### C MP, CBC, LIPASE ####[place] [address] [place] [address] [facility] AST [Catalytic activity/Vol] 19 U/L Normal 13-39 [facility] Comment on above: Performed By: #### C MP, CBC, LIPASE ####[place] [address] [place] [address] [facility] Bilirubin [Mass/Vol] 1.2 mg/dL High 0.3-1.0 [facility] Comment on above: Performed By: #### C MP, CBC, LIPASE ####[place] [address] [place] [address] [facility] Calcium [Mass/Vol] 9.5 mg/dL Normal 8.6-10.3 [facility] Comment on above: Performed By: #### C MP, CBC, LIPASE ####[facility] [place] [address] [facility] Chloride [Moles/Vol] 100 mmol/L Normal 98-107 [facility] Comment on above: Performed By: #### C MP, CBC, LIPASE ####[place] [address] [place] [id number] [facility] CO2 [Moles/Vol] 28.5 mmol/L Normal 21.0-31.0 [facility] Comment on above: Performed By: #### C MP, CBC, LIPASE ####[place] [id number] [facility] Creatinine [Mass/Vol] 1.02 mg/dL Normal 0.60-1.20 [facility] Comment on above: Performed By: #### C MP, CBC, LIPASE ####[address] Creatinine Clr Calc Pharmacy 49.37 [facility] Comment on above: Performed By: #### C MP, CBC, LIPASE ####[address] GFR/1.73 sq M.predicted MDRD (S/P/Bld) [Vol rate/Area] 58.089 mL/min/{1.73_m2} [facility] Comment on above: Performed By: #### C MP, CBC, LIPASE ####[address] Globulin (S) [Mass/Vol] 3.3 g/dL [facility] Comment on above: Performed By: #### C MP, CBC, LIPASE ####[address] Glucose [Mass/Vol] 120 mg/dL High 70-100 [facility] Comment on above: Result Comment: [place] Glucose Reference Range is dependent on time and content of last meal. Glucose of more than 200 mg/dL in a nonstressed, ambulatory subject supports the diagnosis of Diabetes Mellitus. ADA recommended reference range Performed By: #### C MP, CBC, LIPASE ####[address] Potassium [Moles/Vol] 4.1 mmol/L Normal 3.5-5.1 [facility] Comment on above: Performed By: #### C MP, CBC, LIPASE ####[facility] [place] [address] [facility] Protein [Mass/Vol] 7.8 g/dL Normal 6.4-8.9 [facility] Comment on above: Performed By: #### C MP, CBC, LIPASE ####[facility] [place] [address] [facility] Sodium [Moles/Vol] 136 mmol/L Normal 136-145 [facility] Comment on above: Performed By: #### C MP, CBC, LIPASE ####[facility] [place] [address] [facility] Urea nitrogen [Mass/Vol] 23 mg/dL Normal 7-25 [facility] Comment on above: Performed By: #### C MP, CBC, LIPASE ####[place] [address] [place] [id number] [place] Dipstick and Microscopicon 0 09-16-2022 Appearance (U) Cloudy Critically abnormal Clear [facility] Comment on above: Order Comment: Name Collection Type:: Clean-Voided Midstream Performed By: #### A DDONUAPLUS, CUU #### [place] [address] [place] Bacteria,Urine None Seen Normal None Seen [facility] Comment on above: Order Comment: Name Collection Type:: Clean-Voided Midstream Performed By: #### A DDONUAPLUS, CUU #### [place] [address] [place] Bilirubin,Urine Negative Normal Negative [facility] Comment on above: Order Comment: Name Collection Type:: Clean-Voided Midstream Performed By: #### A DDONUAPLUS, CUU #### [facility] [address] [id number] [place] Color (U) Yellow Normal Yellow [facility] Comment on above: Order Comment: Name Collection Type:: Clean-Voided Midstream Performed By: #### A DDONUAPLUS, CUU #### [facility] [address] [place] [address] [place] Glucose Ql (U) Normal Normal Normal [facility] Comment on above: Order Comment: Name Collection Type:: Clean-Voided Midstream Performed By: #### A DDONUAPLUS, CUU #### [address] Hyaline Casts,Urine 0-8 Normal 0-8 [facility] Comment on above: Order Comment: Name Collection Type:: Clean-Voided Midstream Result Comment: PERF ORMED BY: [place] [address] PATHOLOGIST HEAD CD REACTOR OPERATOR COREY AUSTIN M.D. Performed By: #### A DDONUAPLUS, CUU #### [address] Ketones Ql (U) Negative Normal Negative [facility] Comment on above: Order Comment: Name Collection Type:: Clean-Voided Midstream Performed By: #### A DDONUAPLUS, CUU #### [address] Leukocyte esterase Test strip Ql (U) 2+ High Negative [facility] Comment on above: Order Comment: Name Collection Type:: Clean-Voided Midstream Performed By: #### A DDONUAPLUS, CUU #### [place] [address] [place] Nitrite,Urine Negative Normal Negative [facility] Comment on above: Order Comment: Name Collection Type:: Clean-Voided Midstream Performed By: #### A DDONUAPLUS, CUU #### [place] [address] [place] Occult Blood,Urine 3+ High Negative [facility] Comment on above: Order Comment: Name Collection Type:: Clean-Voided Midstream Result Comment: PERF ORMED BY: [place] [address] PATHOLOGIST HEAD CD REACTOR OPERATOR COREY AUSTIN M.D. Performed By: #### A DDONUAPLUS, CUU #### [place] [address] [place] pH (U) 6.5 [pH] Normal 5.0-9.0 [facility] Comment on above: Order Comment: Name Collection Type:: Clean-Voided Midstream Performed By: #### A DDONUAPLUS, CUU #### [address] Protein,Urine Trace High Negative [facility] Comment on above: Order Comment: Name Collection Type:: Clean-Voided Midstream Performed By: #### A DDONUAPLUS, CUU #### [address] RBC,Urine 50-100 High 0-4 [facility] Comment on above: Order Comment: Name Collection Type:: Clean-Voided Midstream Performed By: #### A DDONUAPLUS, CUU #### [address] Specificy [place],Urine 1.018 Normal 1.001-1.030 [facility] Comment on above: Order Comment: Name Collection Type:: Clean-Voided Midstream Performed By: #### A DDONUAPLUS, CUU #### [address] Squamous Epithelial Cell,Urine 3-4 High 0-2 [facility] Comment on above: Order Comment: Name Collection Type:: Clean-Voided Midstream Performed By: #### A DDONUAPLUS, CUU #### [address] Urobilinogen,Urine Normal Normal Normal [facility] Comment on above: Order Comment: Name Collection Type:: Clean-Voided Midstream Performed By: #### A DDONUAPLUS, CUU #### [place] [address] [place] WBC,Urine 5-9 High 0-4 [facility] Comment on above: Order Comment: Name Collection Type:: Clean-Voided Midstream Performed By: #### A DDONUAPLUS, CUU #### [address] Lipaseon 09-16-2022 Lipase [Catalytic activity/Vol] 36.0 U/L Normal 11.0-82.0 [facility] Comment on above: Result Comment: PERF ORMED BY: [facility] [address] [place] [address] PATHOLOGIST HEAD CD REACTOR OPERATOR COREY AUSTIN M.D. Performed By: #### C MP, CBC, LIPASE ####[facility] [id number] Urine Cultureon 09-16-2022 Bacteria identified Cx Nom (U) No Growth 2 Days PERFORMED BY: [facility] [address] [place] [address] PATHOLOGIST HEAD CD REACTOR OPERATOR COREY AUSTIN M.D. Normal [facility] Comment on above: Performed By: #### A DDONUAPLUS, CUU #### [facility] [address] RAD - MISCon 08-10-2022 RAD - MISC [id number] Normal [facility] Patient Educationon 08-10-19 Patient Education Urology Dietary Guidelines to Help Prevent Kidney Stones Kidney stones are deposits of minerals and salts that form inside your kidneys. Your risk of developing kidney stones may be greater depending on your diet, your lifestyle, the medicines you take, and whether you have certain medical conditions. Most people can reduce their chances of developing kidney stones by following the instructions below. Depending on your overall health and the type of kidney stones you tend to develop, your dietitian may give you more specific instructions. What are tips for following this plan? Reading food labels ? Choose foods with no salt added or low-salt labels. Limit your sodium intake to less than 1500 mg per day. ? Choose foods with calcium for each meal and snack. Try to eat about 300 mg of calcium at each meal. Foods that contain 200?500 mg of calcium per serving include: ? 8 oz (237 ml) of milk, fortified nondairy milk, and fortified fruit juice. ? 8 oz (237 ml) of kefir, yogurt, and soy yogurt. ? 4 oz (118 ml) of tofu. ? 1 oz of cheese. ? 1 cup (300 g) of dried figs. ? 1 cup (91 g) of cooked broccoli. ? 1?3 oz can of sardines or mackerel. ? Most people need 1000 to 1500 mg of calcium each day. Talk to your dietitian about how much calcium is recommended for you. Shopping ? Buy plenty of fresh fruits and vegetables. Most people do not need to avoid fruits and vegetables, even if they contain nutrients that may contribute to kidney stones. ? When shopping for convenience foods, choose: ? Whole pieces of fruit. ? Premade salads with dressing on the side. ? Low-fat fruit and yogurt smoothies. ? Avoid buying frozen meals or prepared deli foods. ? Look for foods with live cultures, such as yogurt and kefir. Cooking ? Do not add salt to food when cooking. Place a salt shaker on the table and allow each person to add his or her own salt to taste. ? Use vegetable protein, such as beans, textured vegetable protein (TVP), or tofu instead of meat in pasta, casseroles, and soups. Meal planning ? Eat less salt, if told by your dietitian. To do this: ? Avoid eating processed or premade food. ? Avoid eating fast food. ? Eat less animal protein, including cheese, meat, poultry, or fish, if told by your dietitian. To do this: ? Limit the number of times you have meat, poultry, fish, or cheese each week. Eat a diet free of meat at least 2 days a week. ? Eat only one serving each day of meat, poultry, fish, or seafood. ? When you prepare animal protein, cut pieces into small portion sizes. For most meat and fish, one serving is about the size of one deck of cards. ? Eat at least 5 servings of fresh fruits and vegetables each day. To do this: ? Keep fruits and vegetables on hand for snacks. ? Eat 1 piece of fruit or a handful of berries with breakfast. ? Have a salad and fruit at lunch. ? Have two kinds of vegetables at dinner. ? Limit foods that are high in a substance called oxalate. These include: ? Spinach. ? Rhubarb. ? Beets. ? Potato chips and gambian fries. ? Nuts. ? If you regularly take a diuretic medicine, make sure to eat at least 1?2 fruits or vegetables high in potassium each day. These include: ? Avocado. ? Banana. ? Mariposa, prune, carrot, or tomato juice. ? Baked potato. ? Cabbage. ? Beans and split peas. General instructions ? Drink enough fluid to keep your urine clear or pale yellow. This is the most important thing you can do. ? Talk to your health care provider and dietitian about taking daily supplements. Depending on your health and the cause of your kidney stones, you may be advised: ? Not to take supplements with vitamin C. ? To take a calcium supplement. ? To take a daily probiotic supplement. ? To take other supplements such as magnesium, fish oil, or vitamin B6. ? Take all medicines and supplements as told by your health care provider. ? Limit alcohol intake to no more than 1 drink a day for non women and 2 drinks a day for men. One drink equals 12 oz of beer, 5 oz of wine, or 1? oz of hard liquor. ? Lose weight if told by your health care provider. Work with your dietitian to find strategies and an eating plan that works best for you. What foods are not recommended? Limit your intake of the following foods, or as told by your dietitian. Talk to your dietitian about specific foods you should avoid based on the type of kidney stones and your overall health. Grains Breads. Bagels. Rolls. Baked goods. Salted crackers. Cereal. Pasta. Vegetables Spinach. Rhubarb. Beets. Canned vegetables. Pickles. Olives. Meats and other protein foods Nuts. Nut butters. Large portions of meat, poultry, or fish. Salted or cured meats. Deli meats. Hot dogs. Sausages. Dairy Cheese. Beverages Regular soft drinks. Regular vegetable juice. Seasonings and other foods Seasoning blends with salt. Renetta samson (more content not included)... Normal [facility] Urology Office/Clinic Noteon 08-09-2022 Urology Office/Clinic Note Chief Complaint pt here for a 2 week f/u HPI Staff Pt is a 57 yr old Male here today for a 8 mos f/u. KUB done 08/05/22 shows similar right nephrolithiasis. Pts previous DX: asymptomatic microscopic hematuria, hematuria, kidney stone, urethral stricture. UA shows Small LEUKS. Pts states she has not passed the kidney stone yet. Dysuria: denies Incomplete bladder emptying: denies Hematuria: denies Frequency: denies Urgency: denies Nocturia: 1-2x Stream: strong, steady stream Leaking: denies Post void dripping: denies Wearing pads/ Depends: denies Urge incontinence: denies Stress incontinence: denies Incontinence without Sensory Awareness: denies Abdominal pain: yes mid section Flank pain: denies Sexual complaints: _ History of Present Illness Tests reviewed: reviewed UA, KUB. I have reviewed the previous health record information and history for this patient from Dr. Torrez. I have reviewed and verified the staff HPI to be accurate for this encounter. There have been no associated fever, chills, flank pain, or blood in the urine. Denies any urinary infections since last encounter. Review of Systems PHQ Score Initial Depression Screen Score: 0 ROS - Provider Constitutional: denies weight loss, denies hot flashes. Eyes: denies eye problems. Gastrointestinal: denies nausea, denies vomiting. Cardiovascular: denies chest pain or angina. Integumentary: no dryness Musculoskeletal: denies musculoskeletal symptoms. ENMT: denies otolaryngeal symptoms. Respiratory: no shortness of breath. Heme/Lymph: denies easy bleeding tendency, denies easy bruising tendency. Psychiatric: no confusion, no anxiety. Genitourinary: See HPI. Physical Exam Vitals & Measurements HR: 61(Peripheral) BP: 168/76 HT: 64 in HT: 163 cm WT: 70.8 kg WT: 155.76 lb BMI: 26.65 General Appearance: alert , no acute distress, well nourished, well developed female. Assessment/Plan 1. Kidney stone (N20.0: Calculus of kidney) CT AP wo con 12/11/21 - Stone at the right lower pole measuring 3 mm. KUB 12/22/21 - Right nephrolithiasis as seen on prior CT scan. KUB 08/05/22 [facility] - Similar right nephrolithiasis. UA today shows small leuks. Has not passed any stones that she knows of. Reviewed KUB with pt, no change in stone. Struggles to drink water during the day at work due to limited time for bathroom breaks. Thinks she passed prior ureteral stone, sunk to the bottom of the toilet but did not retrieve. Discussed continuing to monitor but extending to a year since stone remains stable. Follow up 1 year with KUB or sooner if needed. Pt understands and agrees with plan. -High fluid intake Follow-up With When Contact Information SHAN RICHARDS, Dat P, URL [address] [place] [id number]- Additional Instructions: 1 yr kub Patient Education Dietary Guidelines to Help Prevent Kidney Stones I, Cheyanne Steve, personally scribed for Dr. Torrez on 08/09/2022 10:05:06. . Documentation recorded by the scribe, Cheyanne Steve, accurately reflects the services(s) I performed and decisions made by me. Authenticated by Dr. Torrez on 08/09/2022 10:06:30. Problem List/Past Medical History Ongoing Acid reflux Arthritis Asymptomatic microscopic hematuria Prince's esophagus Diabetic acidosis, type II Hematuria HTN - Hypertension Hyperlipidemia Irregular heart rhythm Kidney stone Kidney stones Murmur, heart Plantar fasciitis Urethral stricture Historical Mitral valve prolapse Procedure/Surgical History percutaneous plantar fasciotomy, ultrasonic guided with Tenex device (04/03/2014), section, Cholecystectomy, Hemorrhoidectomy, Lumbar laminectomy and excision of intradural spinal lesion, Mammoplasty, Procedure on back, LAWANDA - Total abdominal hysterectomy, Tonsillectomy. Medications atenolol 50 mg Tab, 50 mg= 1 tab(s), Oral, Daily atorvastatin, 40 mg, Oral, Daily diclofenac, 75 mg, Oral, BID hydrochlorothiazide, 12.5 mg, Oral, Daily lisinopril, 10 mg, Oral, Daily meloxicam 15 mg oral tablet, 15 mg= 1 tab(s), Oral, Daily Metamucil 3.4 g/5.2 g oral powder, 3.4 gm, Oral, Daily, PRN metformin, 500 mg, Oral, BID Nexium 40 mg Cap-EC, 40 mg= 1 cap(s), Oral, Daily verapamil, 300 mg, Once a day (at bedtime) verapamil 120 mg oral tablet, 120 mg= 1 tab(s), Oral, Daily verapamil 180 mg ER Tab, 180 mg= 1 tab(s), Oral, Daily Allergies No Known Allergies Social History Alcohol - Denies Alcohol Use, 03/28/2014 Substance Abuse - Denies Substance Abuse, 03/28/2014 Tobacco - Denies Tobacco Use, 03/28/2014 Never (less than 100 in lifetime) Tobacco Use:. Never Smokeless Tobacco Use:., 08/09/2022 Family History Acute myocardial infarction: Mother and Brother. Anemia: Sister. Arthritis: Mother. Cancer: Grandparent. Diabetes mellitus: Brother. Diabetes mellitus type 2: Mother and Brother. Hyper (more content not included)... Normal [facility] Comment on above: Result Comment: Elec tronically Signed By: Dat TORREZ MD\.br\Date and Time Signed: 08/09/22 10:06 EDT\.br\Electronically Co-Signed By: Cheyanne Steve\.br\Date and Time Co-Signed: 08/09/22 10:05 EDT XR KUBon 08-05-2022 XR KUB [facility] [place] [address] [place] [address] XRay Report Signed Patient: Jenae Knapp MR#: [id number] 4 : 1950 Acct:[id number] Age/Sex: 71 / F ADM Date: 08/05/22 Loc: XD Room: Type: [facility] Attending Dr: Dat Torrez MD Copies to: Dat Torrez MD Ordering Provider: Dat Torrez MD Date of Service: 08/05/22 XR/XR KUB: N20.0 KUB COMPARISON: 12/22/21 HISTORY: Follow-up kidney stones in the RIGHT THORAX: Lung bases unremarkable. FREE AIR: BOWEL: Nondistended air-filled small bowel loops identified. STOOL: No significant stool RENAL STONES: Stool overlies the kidneys limiting assessment. Nonobstructing RIGHT renal calculus present. VASCULAR CALCIFICATIONS:None SOFT TISSUE: Unremarkable BONES: Mild scoliosis and extensive lumbar degeneration. POSTSURGICAL CHANGES:Cholecystectom y. XR/XR KUB IMPRESSION: Similar RIGHT nephrolithiasis. Impression dictated by: Jose M Davison M.D.08/05/2022 12:01 PM Dictation Location: [place] [address] Transcribed By: [facility] 08/05/22 1201 Dictated By: Jose M Davison DO 08/05/22 1159 Signed By: 08/05/22 1201 [facility] CBC AUTO DIFFon 07-27-2022 BASO # 0.1 103/ul Normal 0.0-0.1 [facility] Comment on above: Performed By: #### C BC #### [facility] [address] [address] [address] Pb Govea Basophils/100 WBC (Bld) 0.7 % Normal 0.2-2.0 [facility] Comment on above: Performed By: #### C BC #### [facility] [address] [place] [address] Dr. Pb Govea EO # 0.3 103/ul Normal 0.0-0.7 [facility] Comment on above: Performed By: #### C BC #### [facility] [address] [address] [address] Pb Govea Eosinophils/100 WBC (Bld) 3.1 % Normal 0.9-7.0 [facility] Comment on above: Performed By: #### C BC #### [facility] [address] [place] [address] Dr. Pb Govea Erythrocyte distribution width (RBC) [Ratio] 13.5 % Normal 11.0-15.0 [facility] Comment on above: Performed By: #### C BC #### [facility] [address] [place] [address] Dr. Pb Govea Hematocrit (Bld) [Volume fraction] 39.9 % Normal 36.0-48.0 [facility] Comment on above: Performed By: #### C BC #### [facility] [address] [place] [address] Dr. Pb Govea Hemoglobin (Bld) [Mass/Vol] 13.2 g/dL Normal 12.0-16.0 [facility] Comment on above: Performed By: #### C BC #### [facility] [address] [place] [address] Dr. Pb Govea IG # 0.05 10e3/ul Critically high 0.00-0.03 [facility] Comment on above: Performed By: #### C BC #### [facility] [address] [place] [address] Dr. Pb Govea IG % 0.5 % Normal 0.0-0.5 [facility] Comment on above: Performed By: #### C BC #### [facility] [address] [place] [address] Dr. Pb Govea LYMPH # 1.8 103/ul Normal 1.2-3.8 [facility] Comment on above: Performed By: #### C BC #### [facility] [address] [place] [address] Dr. Pb Govea Lymphocytes/100 WBC (Bld) 18.0 % Critically low 20.5-60.0 [facility] Comment on above: Performed By: #### C BC #### [facility] [address] [place] [address] Dr. Pb Govea MANUAL DIFF REQ NO Normal [facility] Comment on above: Performed By: #### C BC #### [facility] [address] [place] [address] Dr. Pb Govea MCH (RBC) [Entitic mass] 28.7 pg Normal 26.7-34.0 [facility] Comment on above: Performed By: #### C BC #### [facility] [address] [place] [address] Dr. Pb Govea MCHC (RBC) [Mass/Vol] 33.1 g/dL Normal 29.9-35.2 [facility] Comment on above: Performed By: #### C BC #### [facility] [address] [place] [address] Dr. Pb Govea MCV (RBC) [Entitic vol] 86.7 fL Normal 81.0-99.0 [facility] Comment on above: Performed By: #### C BC #### [facility] [address] [place] [address] Dr. Pb Govea MONO # 0.8 103/ul Normal 0.3-0.8 [facility] Comment on above: Performed By: #### C BC #### [facility] [address] [place] [address] Dr. Pb Govea Monocytes/100 WBC (Bld) 7.5 % Normal 1.7-12.0 [facility] Comment on above: Performed By: #### C BC #### [facility] [address] [place] [address] Dr. Pb Govea NEUT # 7.0 103/ul Critically high 1.4-6.5 [facility] Comment on above: Performed By: #### C BC #### [facility] [address] [place] [address] Dr. Pb Govea Neutrophils/100 WBC (Bld) 70.2 % Normal 43.0-75.0 [facility] Comment on above: Performed By: #### C BC #### [facility] [address] [place] [address] Dr. Pb Govea Platelet mean volume (Bld) [Entitic vol] 11.3 fL Normal 9.5-13.5 [facility] Comment on above: Performed By: #### C BC #### [facility] [address] [place] [address] Dr. Pb Govea PLT 191 103/ul Normal 150-450 [facility] Comment on above: Performed By: #### C BC #### [facility] [address] [place] [address] Dr. Pb Govea RBC 4.60 106/ul Normal 4.20-5.40 [facility] Comment on above: Performed By: #### C BC #### [facility] [address] [place] [address] Dr. Pb Govea WBC 10.0 103/ul Normal 4.0-11.0 [facility] Comment on above: Performed By: #### C BC #### [facility] [address] [place] [address] Dr. Pb Govea GLYCOHEMOGLOBIN A1Con 2022 ADA RECOMMENDATION SEE BELOW Normal [facility] Comment on above: Result Comment: ADA RECOMMENDED LIMIT 4.0 - 6.0 ADA THERAPEUTIC TARGET < 7.0 ACTION SUGGESTED > 7.0 Performed By: #### A 1C #### [facility] [address] [place] [address] Dr. Pb Govea Glucose [Mass/Vol] 123 mg/dL Normal [facility] Comment on above: Performed By: #### A 1C #### [facility] [address] [place] [address] Dr. Pb Govea HbA1c (Bld) [Mass fraction] 5.9 % Normal 4.5-6.2 [facility] Comment on above: Performed By: #### A 1C #### [facility] [address] [place] [address] Dr. Pb Govea MICROALBUMIN, VEST URon 06-30 mALB <1.3 Normal <=30.0 [facility] Comment on above: Performed By: #### M ALBR #### [facility] [address] [place] [address] Dr. Pb Govea PROF 14(COMP METB)on 023 Albumin [Mass/Vol] 4.1 g/dL Normal 3.4-5.0 [facility] Comment on above: Performed By: #### C MP #### [facility] [address] [place] [address] Dr. Pb Govea Albumin/Globulin [Mass ratio] 1.2 {ratio} Normal [facility] Comment on above: Performed By: #### C MP #### [facility] [address] [place] [address] Dr. Pb Govea ALP [Catalytic activity/Vol] 93 U/L Normal 46-116 [facility] Comment on above: Performed By: #### C MP #### [facility] [address] [place] [address] Dr. Pb Govea ALT [Catalytic activity/Vol] 26 U/L Normal 14-59 [facility] Comment on above: Performed By: #### C MP #### [facility] [address] [place] [address] Dr. Pb Govea Anion gap [Moles/Vol] 14.5 mmol/L Normal [facility] Comment on above: Performed By: #### C MP #### [facility] [address] [place] [address] Dr. Pb Govea AST [Catalytic activity/Vol] 21 U/L Normal 15-37 [facility] Comment on above: Performed By: #### C MP #### [facility] [address] [place] [address] Dr. Pb Govea Bilirubin [Mass/Vol] 0.6 mg/dL Normal 0.2-1.0 [facility] Comment on above: Performed By: #### C MP #### [facility] [address] [place] [address] Dr. Pb Govea Calcium [Mass/Vol] 9.4 mg/dL Normal 8.5-10.1 [facility] Comment on above: Performed By: #### C MP #### [facility] [address] [place] [address] Dr. Pb Govea Chloride [Moles/Vol] 107 mmol/L Normal 98-107 [facility] Comment on above: Performed By: #### C MP #### [facility] [address] [place] [address] Dr[address] Pb Govea CO2 [Moles/Vol] 28.2 mmol/L Normal 21.0-32.0 [facility] Comment on above: Performed By: #### C MP #### [facility] [address] [place] [address] Dr. Pb Govea Creatinine [Mass/Vol] 0.84 mg/dL Normal 0.55-1.02 [facility] Comment on above: Performed By: #### C MP #### [facility] [address] [place] [address] Dr. Pb Govea EGFR-AF NORTH [place]OREAN >60 Normal >=60 [facility] Comment on above: Performed By: #### C MP #### [facility] [address] [place] [address] Dr. Pb Govea EGFR-NON AF [place]TH KOREAN >60 Normal >=60 [facility] Comment on above: Performed By: #### C MP #### [facility] [address] [address] [address] Pb Govea Globulin (S) [Mass/Vol] 3.5 g/dL Normal [facility] Comment on above: Performed By: #### C MP #### [facility] [address] [place], [place] [address] Dr. Pb Govea Glucose [Mass/Vol] 91 mg/dL Normal 74-106 [facility] Comment on above: Performed By: #### C MP #### [facility] [id number] Pb Govea Potassium [Moles/Vol] 4.7 mmol/L Normal 3.5-5.1 [facility] Comment on above: Performed By: #### C MP #### [facility] [address] [address] [address] Pb Govea Protein [Mass/Vol] 7.6 g/dL Normal 6.4-8.2 [facility] Comment on above: Performed By: #### C MP #### [facility] [address] [address] [address] Pb Govea Sodium [Moles/Vol] 145 mmol/L Normal 136-145 [facility] Comment on above: Performed By: #### C MP #### [facility] [address] [address] [address] Pb Govea Urea nitrogen [Mass/Vol] 23.0 mg/dL Critically high 7.0-18.0 [facility] Comment on above: Performed By: #### C MP #### [facility] [id number] Pb Govea Urea nitrogen/Creatinine [Mass ratio] 27.4 mg/mg Normal [facility] Comment on above: Performed By: #### C MP #### [facility] [id number] Pb Govea Provider Letteron 06-20-2022 Provider Letter June 20, 2022 JENAE KNAPP [address] [place] [id number] JENAE KNAPP 1950 Dear Jenae, We have been trying to reach you with no success. You have an appointment with Dr. Torrez on July 01, 2022 which will need to be rescheduled since he will be out of the office that day. Please contact the office at the number listed below to get this appointment rescheduled at your earliest convenience. Thank you for your prompt attention to this matter. Please call [phone] before this appointment date - thank you! Sincerely, [facility] [address] [address] [facility] Office Visit (Cardiology)on 03-11-2022 Follow-up visit Diagnoses/Problems Assessed Shortness of breath (786.05) (R06.02) Essential hypertension (401.9) (I10) Hyperlipidemia (272.4) (E78.5) Never a smoker Overweight with body mass index (BMI) of 27 to 27.9 in adult (278.02,V85.23) (E66.3,Z68.27) Diabetes (250.00) (E11.9) Orders Diabetes, Essential hypertension Basic Metabolic Panel; Status:Active - Retrospective Authorization; Requested for:06Mar2023; Essential hypertension Renew: Lisinopril 10 MG Oral Tablet; TAKE 1 TABLET BY MOUTH EVERY DAY Hyperlipidemia Renew: Atorvastatin Calcium 40 MG Oral Tablet; TAKE 1 TABLET BY MOUTH EVERYDAY AT BEDTIME ALT - Alanine Aminotransferase, Serum; Status:Active - Retrospective Authorization; Requested for:06Mar2023; AST; Status:Active - Retrospective Authorization; Requested for:06Mar2023; Lipid Panel; Status:Active - Retrospective Authorization; Requested for:06Mar2023; Overweight with body mass index (BMI) of 27 to 27.9 in adult Healthy Weight Tips; Status:Complete - Retrospective Authorization; Done: 11Mar2022 Some eating tips that can help you lose weight.; Status:Complete - Retrospective Authorization; Done: 11Mar2022 Shortness of breath Renew: hydroCHLOROthiazide 12.5 MG Oral Tablet; TAKE 1 TABLET DAILY SocHx: Never a smoker Tobacco Use Screening; Status:Complete; Done: 11Mar2022 Patient Instructions Please bring all medicines, vitamins, and herbal supplements with you when you come to the office. Prescriptions will not be filled unless you are compliant with your follow up appointments or have a follow up appointment scheduled as per instruction of your physician. Refills should be requested at the time of your visit. Fall prevention education given Follow up in 1 year. Chief Complaint JENAE KNAPP is being seen for an annual follow-up of. History of Present Illness For follow-up continue management for previous evaluation for chest pain and shortness of breath. Her cardiac work-up was benign. She reported complete resolution of her symptoms after she switched her job to a less stressful job. She feels well. She denies lightheadedness, dizziness or syncope. Recent laboratory data noted and reviewed with her. ASSESSMENT: 1. Prior complaint of chest pain and shortness of breath. Patient reported improvement. Her recent cardiac workup including stress test and echocardiogram are negative and reassuring... To have stressful job and her symptoms completely resolved after switching job 2. Hypertension, controlled. 3. Hyperlipidemia, recent lab noted and controlled 4. Obesity with 5 pounds weight loss 5. Very strong family history of coronary artery disease. RECOMMENDATION: 1. The patient was counseled regarding risk factor adjustment And primary prevention 2. . The patient was advised to lose weight and exercise. 3. I I reviewed with her her recent lab work 4. Follow-up in 1 year we will plan to repeat lab work prior to next office visit. Surgical History Problems History of Back surgery History of Breast augmentation History of section History of Cholecystectomy History of Complete colonoscopy History of Hysterectomy History of Trigger finger repair 1 on right, 2 on left Current Meds Medication NameInstruction Atorvastatin Calcium 40 MG Oral TabletTAKE 1 TABLET BY MOUTH EVERYDAY AT BEDTIME hydroCHLOROthiazide 12.5 MG Oral TabletTAKE 1 TABLET DAILY. Lisinopril 10 MG Oral TabletTAKE 1 TABLET BY MOUTH EVERY DAY Meloxicam 15 MG Oral TabletTAKE 1 TABLET DAILY. metFORMIN HCl - 500 MG Oral TabletTAKE 0.25 TABLET Twice daily Verapamil HCl ER 120 MG Oral Capsule Extended Release 24 Hourtake 1 capsule by mouth every morning BEFORE BREAKFAST Verapamil HCl ER 180 MG Oral Capsule Extended Release 24 Hourtake 1 capsule by mouth once daily Allergies Medication No Known Drug Allergies Recorded By: Dee Atkinson; 03/06/2021 8:39:04 AM Social History Problems Caffeine use (V49.89) (Z78.9) 1 cups coffee daily, 1 Coke daily Never a smoker No alcohol use No illicit drug use Review of Systems Constitutional: not feeling tired. Cardiovascular: no intermittent leg claudication and as noted in HPI. Respiratory: no cough and no shortness of breath. Gastrointestinal: no change in bowel habits and no blood in stools. Integumentary: no skin rashes. Neurological: no seizures and no frequent falls. All other systems have been reviewed and are negative for complaint. Vitals Vital Signs Recorded: 11Mar2022 08:59AM Heart Rate64, L Radial Ciuimszt327, LUE, Sitting Nuoqgdnyf30, LUE, Sitting Height5 ft 4 in Ktstez942 lb BMI Nreyecrxdm19.95 kg/m2 BSA Calculated1.76 Tobacco Useb) No PHQ-2 #1. Over the last 2 weeks have you felt down, depressed or hopeless? (If yes, answer PHQ-9 below)No PHQ-2 #2. Over the last 2 weeks have you felt little interest or pleasure in doing things? (If yes, answer PHQ-9 below)No Falls Screening (Age 18+)b) One or mo (more content not included)... Normal [employer] Tobacco Screening.on 022 Adult depression screening assessment No [facility] [employer] 250 DO Work Phone: Fall risk assessment b) One or more fall s in the last year [facility] [employer] 250 DO Work Phone: Tobacco use status CP b) No [facility] Tamoco y 250 DO Work Phone: Laboratory - Chemistry and C hemistry - challengeon 03-04-2022 Cholesterol [Mass/Vol] 166\S\166 Normal 140-200 [facility] Tamoco y 250 DO Work Phone: Comment on above: Chol less than 200 m g/dl low risk Chol 201-239 mg/dl borderline risk Chol 240 mg/dl and greater high risk Cholesterol in LDL [Mass/Vol] 87\S\87 Normal 0-100 [facility] Tamoco y 250 DO Work Phone: Comment on above: LDL ATP III CLASSIFI CATION LDL less than 100 mg/dL Optimal LDL 100-129 mg/dL Near or above optimal LDL 130-159 mg/dL Borderline high LDL 160-189 mg/dL High LDL greater than 189 mg/dL Very high No Panel Informationon 03-04 10.8\S\10.8 Normal 6.0-15.0 [facility] Alisia flores 250 DO Work Phone: [phone] 9.3\S\9.3 Normal 8.2-10.2 [facility] 250 DO Work Phone: [phone] 26.9\S\26.9 Normal 22.0-30.0 [facility] Work Phone: [phone] 105\S\105 Normal 95-114 [facility] 250 DO Work Phone: [phone] 4.7\S\4.7 Normal 3.5-5.1 [facility] DO Work Phone: [phone] 138\S\138 Normal 136-146 [facility] DO Work Phone: [phone] > 60 Normal [facility] flores 250 DO Work Phone: Comment on above: GFR estimated refere nce range: According to KDOQI guidelines, <60 ml/min/1.73m2 is sufficient to diagnose a patient with chronic kidney disease. 0.83\S\0.83 Normal 0.44-1.03 [facility] flores 250 DO Work Phone: [phone] 20\S\20 Normal 10-60 [facility] flores 250 DO Work Phone: [phone] 107\S\107 above high threshold 70-100 [facility] flores 250 DO Work Phone: [phone] Comment on above: Random Glucose Refer ence Range is dependent on time and content of last meal. Glucose of more than 200 mg/dL in a nonstressed, ambulatory subject supports the diagnosis of Diabetes Mellitus. ADA recommended reference range 22\S\22 Normal 10-42 [facility] 250 DO Work Phone: 3.0\S\3.0 Normal <5.0 [facility] DO Work Phone: Comment on above: PERFORMED BY:[facility] [place] [place], [place] [id number] MEDICAL DIRECTORCOREY AUSTIN M.D. 23\S\23 Normal [facility] y 250 DO Work Phone: 117\S\117 Normal 35-149 [facility] 250 DO Work Phone: Comment on above: TRIG ATP III CLASSIF ICATION TRIG less than 150 mg/dL Normal TRIG 150-199 mg/dL Borderline high TRIG 200-500 mg/dL High TRIG greater than 500 mg/dL Very high Standard traceable to the Center for Disease Conrtrol and Prevention (CDC) test method. 56\S\56 Normal 35-85 [facility] DO Work Phone: Comment on above: HDL CHOL ATP-III CLA SSIFICATION Cardiovascular Risk HDL > or equal to 60 mg/dL LOW HDL < 40 mg/dL HIGH Urine culture routineOrdered By: Julio C Carlisle on 12-13-2021 Bacteria identified Cx Nom (U) No Growth 2 Days [facility] Activated partial thrombopla stin time (aPTT) in platelet poor plasma by coagulation aOrdered By: Julio C Carlisle on 12-11-2021 aPTT Coag (PPP) [Time] 31.3 s 25.1-36.5 [facility] Albumin [Mass/volume] in Ser um or PlasmaOrdered By: Julio C Carlisle on 12-11-2021 Albumin [Mass/Vol] 3.8 g/dL 3.2-5.5 [facility] Automated erythrocytes count in urine sediment (number/area)Ordered By: Julio C Carlisle on 12-11-2021 RBC Auto (Urine sed) [#/Area] 20-49 [HPF] 0-4 [facility] Automated leukocytes count i n urine sediment (number/area)Ordered By: Julio C Carlisle on 12-11-2021 WBC Auto (Urine sed) [#/Area] 10-19 [HPF] 0-4 [facility] Automated urine hyaline cast s count (number/volume)Ordered By: Julio C Carlisle on 12-11-2021 Hyaline casts Auto (U) [#/Vol] None seen [LPF] 0-1 [facility] Basophils Auto (Bld) [#/Vol] Ordered By: Julio C Carlisle on 12-11-2021 Basophils (Bld) [#/Vol] 0.1 10*3/uL 0.0-0.2 [facility] Basophils/100 WBC Auto (Bld) Ordered By: Julio C Carlisle on 12-11-2021 Basophils/100 WBC (Bld) 0.7 % . [facility] Bilirubin Test strip Ql (U)O rdered By: Julio C Carlisle on 12-11-2021 Bilirubin Ql (U) Negative Negative [facility] Blood hemoglobin measurement (mass/volume)Ordered By: Julio C Carlisle on 12-11-2021 Hemoglobin (Bld) [Mass/Vol] 13.2 g/dL 11.8-15.4 [facility] Blood leukocytes automated c ount (number/volume)Ordered By: Julio C Carlisle on 12-11-2021 WBC (Bld) [#/Vol] 9.8 10*3/uL 4.5-11.0 [facility] Casts typing in urine sedime nt by light microscopyOrdered By: Julio C Carlisle on 12-11-2021 Casts LM Nom (Urine sed) None seen [LPF] None Seen [facility] Color Auto (U)Ordered By: Tonio Carlisle on 12-11-2021 Color (U) Yellow Yellow [facility] Creatinine and Glomerular fi ltration rate.predicted panel (S/P/Bld)Ordered By: Julio C Carlisle on 12-11-2021 Creatinine [Mass/Vol] 0.96 mg/dL 0.44-1.03 [facility] Direct bilirubin measurement Ordered By: Julio C Carlisle on 12-11-2021 Bilirubin.direct [Mass/Vol] 0.1 mg/dL 0.0-0.4 [facility] Eosinophils Auto (Bld) [#/Vo l]Ordered By: Julio C Carlisle on 12-11-2021 Eosinophils (Bld) [#/Vol] 0.3 10*3/uL 0.0-0.45 [facility] Eosinophils/100 WBC Auto (Bl d)Ordered By: Julio C Carlisle on 12-11-2021 Eosinophils/100 WBC (Bld) 2.7 % . [facility] Erythrocyte distribution wid th Auto (RBC) [Ratio]Ordered By: Julio C Carlisle on 12-11-2021 Erythrocyte distribution width (RBC) [Ratio] 14.7 % 11.9-15.3 [facility] Estimated glomerular filtrat ion rate (GFR) non- AmericanOrdered By: Julio C Carlisle on 12-11-2021 GFR/1.73 sq M.predicted among non-blacks MDRD (S/P/Bld) [Vol rate/Area] 57 mL/Min [facility] Globulin Calc (S) [Mass/Vol] Ordered By: Julio C Carlisle on 12-11-2021 Globulin (S) [Mass/Vol] 2.9 g/dL [facility] Hematocrit Auto (Bld) [Volum e fraction]Ordered By: Julio C Carlisle on 12-11-2021 Hematocrit (Bld) [Volume fraction] 40.0 % 34.0-46.4 [facility] Ketones Auto test strip (U) [Mass/Vol]Ordered By: Julio C Carlisle on 12-11-2021 Ketones (U) [Mass/Vol] Trace Negative [facility] Laboratory - Chemistry and C hemistry - challengeOrdered By: Julio C Carlisle on 12-11-2021 Lipase [Catalytic activity/Vol] 44.0 U/L 22-51 [facility] Laboratory - CoagulationOrde red By: Julio C Carlisle on 12-11-2021 PT Coag (PPP) [Time] 9.9 s 9.0-12.9 [facility] Laboratory - Hematology and Cell countsOrdered By: Julio C Carlisle on 12-11-2021 Nucleated RBC/100 WBC (Bld) [Ratio] 0.0 % 0-0.5 [facility] Lymphocytes Auto (Bld) [#/Vo l]Ordered By: Julio C Carlisle on 12-11-2021 Lymphocytes (Bld) [#/Vol] 1.7 10*3/uL 1.00-4.8 [facility] Lymphocytes/100 WBC Auto (Bl d)Ordered By: Julio C Carlisle on 12-11-2021 Lymphocytes/100 WBC (Bld) 17.4 % . [facility] MCH Auto (RBC) [Entitic mass ]Ordered By: Julio C Carlisle on 12-11-2021 MCH (RBC) [Entitic mass] 28.6 pg 24.7-34.3 [facility] MCHC Auto (RBC) [Mass/Vol]Or dered By: Julio C Carlisle on 12-11-2021 MCHC (RBC) [Mass/Vol] 33.1 g/dL 32.0-35.0 [facility] MCV Auto (RBC) [Entitic vol] Ordered By: Julio C Carlisle on 12-11-2021 MCV (RBC) [Entitic vol] 86.5 fL 80-100 [facility] Monocytes Auto (Bld) [#/Vol] Ordered By: Julio C Carlisle on 12-11-2021 Monocytes (Bld) [#/Vol] 0.8 10*3/uL 0.0-0.8 [facility] Monocytes/100 WBC Auto (Bld) Ordered By: Julio C Carlisle on 12-11-2021 Monocytes/100 WBC (Bld) 8.4 % . [facility] Neutrophils Auto (Bld) [#/Vo l]Ordered By: Julio C Carlisle on 12-11-2021 Neutrophils (Bld) [#/Vol] 6.9 10*3/uL 1.8-7.7 [facility] Neutrophils/100 WBC Auto (Bl d)Ordered By: Julio C Carlisle on 12-11-2021 Neutrophils/100 WBC (Bld) 70.8 % . [facility] Nitrite Test strip Ql (U)Ord ered By: Julio C Carlisle on 12-11-2021 Nitrite Ql (U) Negative Negative [facility] No Panel InformationOrdered By: Julio C Carlisle on 12-11-2021 Estimated GFR () > 60 mL/Min [facility] Comment on above: GFR estimated refere nce range: According to KDOQI guidelines, <60 ml/min/1.73m2 is sufficient to diagnose a patient with chronic kidney disease. Pharmacy Creatinine Clearance (Chem 51.86 [facility] Platelet mean volume Auto (B ld) [Entitic vol]Ordered By: Julio C Carlisle on 12-11-2021 Platelet mean volume (Bld) [Entitic vol] 9.9 fL 6.3-10.7 [facility] Platelet poor plasma interna tional normalized ratio (INR) by coagulation assay (relatOrdered By: Julio C Carlisle on 12-11-2021 INR Coag (PPP) [Relative time] 0.9 {INR} [facility] Comment on above: INR Therapeutic Rang e A) Pre- and Peroperative OAT started two weeks before surgery. NOT HIP SURGERY: 1.5 - 2.5 HIP SURGERY: 2 - 3 B) Primary and secondary prevention of venous THROMBOSIS: 2 - 3 C) Active venous thrombosis, pulmonary embolism and prevention of recurrent venous thrombosis: 2 - 3 D) Prevention of arterial thromboembolism including patients with mechanical heart valves: 3 - 4.5 Platelets Auto (Bld) [#/Vol] Ordered By: Julio C Carlisle on 12-11-2021 Platelets (Bld) [#/Vol] 207 10*3/uL 150-450 [facility] Protein Auto test strip (U) [Mass/Vol]Ordered By: Julio C Carlisle on 12-11-2021 Protein (U) [Mass/Vol] Trace mg/dL Negative [facility] Protein [Mass/volume] in Ser um or PlasmaOrdered By: Julio C Carlisle on 12-11-2021 Protein [Mass/Vol] 6.7 g/dL 6.1-7.9 [facility] RBC Auto (Bld) [#/Vol]Ordere d By: Julio C Carlisle on 12-11-2021 RBC (Bld) [#/Vol] 4.63 10*6/uL 3.60-5.00 [facility] Serum or plasma alanine johnson otransferase measurement without P-5'-P (enzymatic activiOrdered By: Julio C Carlisle on 12-11-2021 ALT No additional P-5'-P [Catalytic activity/Vol] 19 U/L 10-60 [facility] Serum or plasma albumin/glob ulin mass ratioOrdered By: Julio C Carlisle on 12-11-2021 Albumin/Globulin [Mass ratio] 1.3 {ratio} [facility] Serum or plasma alkaline cristhian sphatase measurement (enzymatic activity/volume)Ordered By: Julio C Carlisle on 12-11-2021 ALP [Catalytic activity/Vol] 83 U/L 32-92 [facility] Serum or plasma aspartate am inotransferase measurement (enzymatic activity/volume)Ordered By: Julio C Carlisle on 12-11-2021 AST [Catalytic activity/Vol] 20 U/L 10-42 [facility] Serum or plasma calcium austin urement (mass/volume)Ordered By: Julio C Carlisle on 12-11-2021 Calcium [Mass/Vol] 9.2 mg/dL 8.2-10.2 [facility] Serum or plasma chloride mynor surement (moles/volume)Ordered By: Julio C Carlisle on 12-11-2021 Chloride [Moles/Vol] 104 mmol/L 95-114 [facility] Serum or plasma glucose austin urement (mass/volume)Ordered By: Julio C Carlisle on 12-11-2021 Glucose [Mass/Vol] 135 mg/dL 70-100 [facility] Comment on above: ADA recommended refe rence range Random Glucose Reference Range is dependent on time and content of last meal. Glucose of more than 200 mg/dL in a nonstressed, ambulatory subject supports the diagnosis of Diabetes Mellitus. Serum or plasma non-glucuron idated bilirubin measurement (mass/volume)Ordered By: Julio C Carlisle on 12-11-2021 Bilirubin.indirect [Mass/Vol] 0.7 mg/dL [facility] Serum or plasma potassium me asurement (moles/volume)Ordered By: Julio C Carlisle on 12-11-2021 Potassium [Moles/Vol] 4.1 mmol/L 3.5-5.1 [facility] Serum or plasma sodium measu rement (moles/volume)Ordered By: Julio C Carlisle on 12-11-2021 Sodium [Moles/Vol] 139 mmol/L 136-146 [facility] Serum or plasma total biliru bin measurement (mass/volume)Ordered By: Julio C Carlisle on 12-11-2021 Bilirubin [Mass/Vol] 0.8 mg/dL 0.3-1.2 [facility] Serum or plasma total carbon dioxide measurement (moles/volume)Ordered By: Julio C Carlisle on 12-11-2021 CO2 [Moles/Vol] 26.6 mmol/L 22.0-30.0 [facility] Serum or plasma urea nitroge n measurement (mass/volume)Ordered By: Julio C Carlisle on 12-11-2021 Urea nitrogen [Mass/Vol] 24 mg/dL 9-23 [facility] Specific gravity Auto test s trip (U) [Rel density]Ordered By: Julio C Carlisle on 12-11-2021 Specific gravity (U) [Rel density] 1.025 1.001-1.030 [facility] Squamous epithelial cells de tection in urine sediment by light microscopyOrdered By: Juloi C Carlisle on 12-11-2021 Epithelial cells.squamous LM Ql (Urine sed) 5-9 [HPF] 0-2 [facility] Urine bacteria detection by automated methodOrdered By: Julio C Carlisle on 12-11-2021 Bacteria Auto Ql (U) None seen None Seen [facility] Urine clarity by refractomet ry automatedOrdered By: Julio C Carlisle on 12-11-2021 Clarity Refractometry automated (U) Clear Clear [facility] Urine glucose measurement by automated test strip (mass/volume)Ordered By: Julio C Carlisle on 12-11-2021 Glucose Auto test strip (U) [Mass/Vol] Normal mg/dL Normal [facility] Urine hemoglobin detection b y automated test stripOrdered By: Julio C Carlisle on 12-11-2021 Hemoglobin Auto test strip Ql (U) 2+ Negative [facility] Urine leukocyte esterase det ection by automated test stripOrdered By: Julio C Carlisle on 12-11-2021 Leukocyte esterase Auto test strip Ql (U) 3+ Negative [facility] Urobilinogen Auto test strip (U) [Mass/Vol]Ordered By: Julio C Carlisle on 12-11-2021 Urobilinogen (U) [Mass/Vol] Normal mg/dL Normal [facility] pH Auto test strip (U)Ordere d By: Julio C Carlisle on 12-11-2021 pH (U) 5.0 [pH] 5.0-9.0 [facility] Urine culture routineOrdered By: Demetrio Romero on 10-23-2021 Bacteria identified Cx Nom (U) 2 Days [facility] Automated erythrocytes count in urine sediment (number/area)Ordered By: Demetrio Romero on 10-21-2021 RBC Auto (Urine sed) [#/Area] 0-1 [HPF] 0-4 [facility] Automated leukocytes count i n urine sediment (number/area)Ordered By: Demetrio Romero on 10-21-2021 WBC Auto (Urine sed) [#/Area] 10-19 [HPF] 0-4 [facility] Basophils Auto (Bld) [#/Vol] Ordered By: Demetrio Romero on 10-21-2021 Basophils (Bld) [#/Vol] 0.0 10*3/uL 0.0-0.2 [facility] Basophils/100 WBC Auto (Bld) Ordered By: Demetrio Romero on 10-21-2021 Basophils/100 WBC (Bld) 0.3 % . [facility] Bilirubin Test strip Ql (U)O rdered By: Demetrio Romero on 10-21-2021 Bilirubin Ql (U) Negative Negative [facility] Blood hemoglobin measurement (mass/volume)Ordered By: Demetrio Romero on 10-21-2021 Hemoglobin (Bld) [Mass/Vol] 12.7 g/dL 11.8-15.4 [facility] Blood leukocytes automated c ount (number/volume)Ordered By: Demetrio Romero on 10-21-2021 WBC (Bld) [#/Vol] 11.5 10*3/uL 4.5-11.0 [facility] Body fluid albumin measureme nt (mass/volume)Ordered By: Demetrio Romero on 10-21-2021 Albumin (Body fld) [Mass/Vol] 3.8 g/dL 3.2-5.5 [facility] Color Auto (U)Ordered By: Adolfo Romero on 10-21-2021 Color (U) Yellow Yellow [facility] Creatinine and Glomerular fi ltration rate.predicted panel (S/P/Bld)Ordered By: Demetrio Romero on 10-21-2021 Creatinine [Mass/Vol] 1.36 mg/dL 0.44-1.03 [facility] Eosinophils Auto (Bld) [#/Vo l]Ordered By: Demetrio Romero on 10-21-2021 Eosinophils (Bld) [#/Vol] 0.1 10*3/uL 0.0-0.45 [facility] Eosinophils/100 WBC Auto (Bl d)Ordered By: Demetrio Romero on 10-21-2021 Eosinophils/100 WBC (Bld) 0.8 % . [facility] Erythrocyte distribution wid th Auto (RBC) [Ratio]Ordered By: Demetrio Romero on 10-21-2021 Erythrocyte distribution width (RBC) [Ratio] 14.8 % 11.9-15.3 [facility] Estimated glomerular filtrat ion rate (GFR) non- AmericanOrdered By: Demetrio Romero on 10-21-2021 GFR/1.73 sq M.predicted among non-blacks MDRD (S/P/Bld) [Vol rate/Area] 38 mL/Min [facility] Globulin Calc (S) [Mass/Vol] Ordered By: Demetrio Romero on 10-21-2021 Globulin (S) [Mass/Vol] 3.5 g/dL [facility] Hematocrit Auto (Bld) [Volum e fraction]Ordered By: Demetrio Romero on 10-21-2021 Hematocrit (Bld) [Volume fraction] 37.9 % 34.0-46.4 [facility] Ketones Auto test strip (U) [Mass/Vol]Ordered By: Demetrio Romero on 10-21-2021 Ketones (U) [Mass/Vol] Negative Negative [facility] Laboratory - Hematology and Cell countsOrdered By: Demetrio Romero on 10-21-2021 Nucleated RBC/100 WBC (Bld) [Ratio] 0.0 % 0-0.5 [facility] Laboratory - UrinalysisOrder ed By: Demetrio Romero on 10-21-2021 Hyaline casts LM Ql (Urine sed) 0-8 [LPF] 0-8 [facility] Lymphocytes Auto (Bld) [#/Vo l]Ordered By: Demetrio Romero on 10-21-2021 Lymphocytes (Bld) [#/Vol] 1.0 10*3/uL 1.00-4.8 [facility] Lymphocytes/100 WBC Auto (Bl d)Ordered By: Demetrio Romero on 10-21-2021 Lymphocytes/100 WBC (Bld) 8.3 % . [facility] MCH Auto (RBC) [Entitic mass ]Ordered By: Demetrio Romero on 10-21-2021 MCH (RBC) [Entitic mass] 28.4 pg 24.7-34.3 [facility] MCHC Auto (RBC) [Mass/Vol]Or dered By: Demetrio Romero on 10-21-2021 MCHC (RBC) [Mass/Vol] 33.5 g/dL 32.0-35.0 [facility] MCV Auto (RBC) [Entitic vol] Ordered By: Demetrio Romero on 10-21-2021 MCV (RBC) [Entitic vol] 84.5 fL 80-100 [facility] Monocytes Auto (Bld) [#/Vol] Ordered By: Demetrio Romero on 10-21-2021 Monocytes (Bld) [#/Vol] 1.1 10*3/uL 0.0-0.8 [facility] Monocytes/100 WBC Auto (Bld) Ordered By: Demetrio Romero on 10-21-2021 Monocytes/100 WBC (Bld) 9.3 % . [facility] Neutrophils Auto (Bld) [#/Vo l]Ordered By: Demetrio Romero on 10-21-2021 Neutrophils (Bld) [#/Vol] 9.4 10*3/uL 1.8-7.7 [facility] Neutrophils/100 WBC Auto (Bl d)Ordered By: Demetrio Romero on 10-21-2021 Neutrophils/100 WBC (Bld) 81.3 % . [facility] Nitrite Test strip Ql (U)Ord ered By: Demetrio Romero on 10-21-2021 Nitrite Ql (U) Negative Negative [facility] No Panel InformationOrdered By: Demetrio Romero on 10-21-2021 Estimated GFR () 46 mL/Min [facility] Comment on above: GFR estimated refere nce range: According to KDOQI guidelines, <60 ml/min/1.73m2 is sufficient to diagnose a patient with chronic kidney disease. Pharmacy Creatinine Clearance (Chem 36.64 [facility] Platelet mean volume Auto (B ld) [Entitic vol]Ordered By: Demetrio Romero on 10-21-2021 Platelet mean volume (Bld) [Entitic vol] 9.6 fL 6.3-10.7 [facility] Platelets Auto (Bld) [#/Vol] Ordered By: Demetrio Romero on 10-21-2021 Platelets (Bld) [#/Vol] 164 10*3/uL 150-450 [facility] Protein Auto test strip (U) [Mass/Vol]Ordered By: Demetrio Romero on 10-21-2021 Protein (U) [Mass/Vol] Negative Negative [facility] Protein [Mass/volume] in Ser um or PlasmaOrdered By: Demetrio Romero on 10-21-2021 Protein [Mass/Vol] 7.3 g/dL 6.1-7.9 [facility] RBC Auto (Bld) [#/Vol]Ordere d By: Demetrio Romero on 10-21-2021 RBC (Bld) [#/Vol] 4.49 10*6/uL 3.60-5.00 [facility] Serum or plasma alanine johnson otransferase measurement without P-5'-P (enzymatic activiOrdered By: Demetrio Romero on 10-21-2021 ALT No additional P-5'-P [Catalytic activity/Vol] 21 U/L 10-60 [facility] Serum or plasma albumin/glob ulin mass ratioOrdered By: Demetrio Romero on 10-21-2021 Albumin/Globulin [Mass ratio] 1.1 {ratio} [facility] Serum or plasma alkaline cristhian sphatase measurement (enzymatic activity/volume)Ordered By: Demetrio Romero on 10-21-2021 ALP [Catalytic activity/Vol] 79 U/L 32-92 [facility] Serum or plasma aspartate am inotransferase measurement (enzymatic activity/volume)Ordered By: Demetrio Romero on 10-21-2021 AST [Catalytic activity/Vol] 22 U/L 10-42 [facility] Serum or plasma calcium austin urement (mass/volume)Ordered By: Demetrio Romero on 10-21-2021 Calcium [Mass/Vol] 9.2 mg/dL 8.2-10.2 [facility] Serum or plasma chloride mynor surement (moles/volume)Ordered By: Demetrio Romero on 10-21-2021 Chloride [Moles/Vol] 97 mmol/L 95-114 [facility] Serum or plasma glucose austin urement (mass/volume)Ordered By: Demetrio Romero on 10-21-2021 Glucose [Mass/Vol] 153 mg/dL 70-100 [facility] Comment on above: ADA recommended refe rence range Random Glucose Reference Range is dependent on time and content of last meal. Glucose of more than 200 mg/dL in a nonstressed, ambulatory subject supports the diagnosis of Diabetes Mellitus. Serum or plasma potassium me asurement (moles/volume)Ordered By: Demetrio Romero on 10-21-2021 Potassium [Moles/Vol] 3.6 mmol/L 3.5-5.1 [facility] Serum or plasma sodium measu rement (moles/volume)Ordered By: Demetrio Romero on 10-21-2021 Sodium [Moles/Vol] 135 mmol/L 136-146 [facility] Serum or plasma total biliru bin measurement (mass/volume)Ordered By: Demetrio Romero on 10-21-2021 Bilirubin [Mass/Vol] 1.0 mg/dL 0.3-1.2 [facility] Serum or plasma total carbon dioxide measurement (moles/volume)Ordered By: Demetrio Romero on 10-21-2021 CO2 [Moles/Vol] 24.5 mmol/L 22.0-30.0 [facility] Serum or plasma urea nitroge n measurement (mass/volume)Ordered By: Demetrio Romero on 10-21-2021 Urea nitrogen [Mass/Vol] 29 mg/dL 01-21 [facility] Specific gravity Auto test s trip (U) [Rel density]Ordered By: Demetrio Romero on 10-21-2021 Specific gravity (U) [Rel density] 1.008 1.001-1.030 [facility] Squamous epithelial cells de tection in urine sediment by light microscopyOrdered By: Demetrio Romero on 10-21-2021 Epithelial cells.squamous LM Ql (Urine sed) 1-2 [HPF] 0-2 [facility] Urine bacteria detection by automated methodOrdered By: Demetrio Romero on 10-21-2021 Bacteria Auto Ql (U) None seen None Seen [facility] Urine clarity by refractomet ry automatedOrdered By: Demetrio Romero on 10-21-2021 Clarity Refractometry automated (U) Clear Clear [facility] Urine glucose measurement by automated test strip (mass/volume)Ordered By: Demetrio Romero on 10-21-2021 Glucose Auto test strip (U) [Mass/Vol] Normal mg/dL Normal [facility] Urine hemoglobin detection b y automated test stripOrdered By: Demetrio Romero on 10-21-2021 Hemoglobin Auto test strip Ql (U) Trace Negative [facility] Urine leukocyte esterase det ection by automated test stripOrdered By: Demetrio Romero on 10-21-2021 Leukocyte esterase Auto test strip Ql (U) 3+ Negative [facility] Urobilinogen Auto test strip (U) [Mass/Vol]Ordered By: Demetrio Romero on 10-21-2021 Urobilinogen (U) [Mass/Vol] Normal mg/dL Normal [facility] pH Auto test strip (U)Ordere d By: Demetrio Romero on 10-21-2021 pH (U) 5.0 [pH] 5.0-9.0 [facility] Albumin [Mass/volume] in Ser um or PlasmaOrdered By: Kaushik Payan on 10-06-2021 Albumin [Mass/Vol] 4.1 g/dL 3.2-5.5 [facility] Basophils Auto (Bld) [#/Vol] Ordered By: Kaushik Payan on 10-06-2021 Basophils (Bld) [#/Vol] 0.1 10*3/uL 0.0-0.2 [facility] Basophils/100 WBC Auto (Bld) Ordered By: Kaushik Payan on 10-06-2021 Basophils/100 WBC (Bld) 0.9 % . [facility] Blood hemoglobin measurement (mass/volume)Ordered By: Kaushik Payan on 10-06-2021 Hemoglobin (Bld) [Mass/Vol] 13.1 g/dL 11.8-15.4 [facility] Blood leukocytes automated c ount (number/volume)Ordered By: Kaushik Payan on 10-06-2021 WBC (Bld) [#/Vol] 11.0 10*3/uL 4.5-11.0 [facility] Creatinine and Glomerular fi ltration rate.predicted panel (S/P/Bld)Ordered By: Kaushik Payan on 10-06-2021 Creatinine [Mass/Vol] 0.93 mg/dL 0.44-1.03 [facility] Eosinophils Auto (Bld) [#/Vo l]Ordered By: Kaushik Payan on 10-06-2021 Eosinophils (Bld) [#/Vol] 0.3 10*3/uL 0.0-0.45 [facility] Eosinophils/100 WBC Auto (Bl d)Ordered By: Kaushik Payan on 10-06-2021 Eosinophils/100 WBC (Bld) 2.7 % . [facility] Erythrocyte distribution wid th Auto (RBC) [Ratio]Ordered By: Kaushik Payan on 10-06-2021 Erythrocyte distribution width (RBC) [Ratio] 14.5 % 11.9-15.3 [facility] Estimated glomerular filtrat ion rate (GFR) non- AmericanOrdered By: Kaushik Payan on 10-06-2021 GFR/1.73 sq M.predicted among non-blacks MDRD (S/P/Bld) [Vol rate/Area] 59 mL/Min [facility] Globulin Calc (S) [Mass/Vol] Ordered By: Kaushik Payan on 10-06-2021 Globulin (S) [Mass/Vol] 2.9 g/dL [facility] Glucose mean value [Mass/vol ume] in Blood Estimated from glycated hemoglobinOrdered By: Kaushik Payan on 10-06-2021 Average glucose Estimated from glycated hemoglobin (Bld) [Mass/Vol] 128 mg/dL [facility] Hematocrit Auto (Bld) [Volum e fraction]Ordered By: Kaushik Payan on 10-06-2021 Hematocrit (Bld) [Volume fraction] 38.9 % 34.0-46.4 [facility] Hemoglobin A1c percentageOrd ered By: Kaushik Payan on 10-06-2021 HbA1c (Bld) [Mass fraction] 6.1 % 4.3-5.6 [facility] Comment on above: Increased risk for d iabetes: 5.7 - 6.4 diabetes: >6.4 glycemic control for adults with diabetes: <7.0 Laboratory - Hematology and Cell countsOrdered By: Kaushik Payan on 10-06-2021 Nucleated RBC/100 WBC (Bld) [Ratio] 0.1 % 0-0.5 [facility] Lymphocytes Auto (Bld) [#/Vo l]Ordered By: Kaushik Payan on 10-06-2021 Lymphocytes (Bld) [#/Vol] 1.9 10*3/uL 1.00-4.8 [facility] Lymphocytes/100 WBC Auto (Bl d)Ordered By: Kaushik Payan on 10-06-2021 Lymphocytes/100 WBC (Bld) 17.2 % . [facility] MCH Auto (RBC) [Entitic mass ]Ordered By: Kaushik Payan on 10-06-2021 MCH (RBC) [Entitic mass] 28.4 pg 24.7-34.3 [facility] MCHC Auto (RBC) [Mass/Vol]Or dered By: Kaushik Payan on 10-06-2021 MCHC (RBC) [Mass/Vol] 33.6 g/dL 32.0-35.0 [facility] MCV Auto (RBC) [Entitic vol] Ordered By: Kaushik Payan on 10-06-2021 MCV (RBC) [Entitic vol] 84.5 fL 80-100 [facility] Monocytes Auto (Bld) [#/Vol] Ordered By: Kaushik Payan on 10-06-2021 Monocytes (Bld) [#/Vol] 0.8 10*3/uL 0.0-0.8 [facility] Monocytes/100 WBC Auto (Bld) Ordered By: Kaushik Payan on 10-06-2021 Monocytes/100 WBC (Bld) 7.3 % . [facility] Neutrophils Auto (Bld) [#/Vo l]Ordered By: Kaushik Payan on 10-06-2021 Neutrophils (Bld) [#/Vol] 7.9 10*3/uL 1.8-7.7 [facility] Neutrophils/100 WBC Auto (Bl d)Ordered By: Kaushik Payan on 10-06-2021 Neutrophils/100 WBC (Bld) 71.9 % . [facility] No Panel InformationOrdered By: Kaushik Payan on 10-06-2021 Estimated GFR () > 60 mL/Min [facility] Comment on above: GFR estimated refere nce range: According to KDOQI guidelines, <60 ml/min/1.73m2 is sufficient to diagnose a patient with chronic kidney disease. Pharmacy Creatinine Clearance (Chem N/A [facility] Platelet mean volume Auto (B ld) [Entitic vol]Ordered By: Kaushik Payan on 10-06-2021 Platelet mean volume (Bld) [Entitic vol] 10.1 fL 6.3-10.7 [facility] Platelets Auto (Bld) [#/Vol] Ordered By: Kaushik Payan on 10-06-2021 Platelets (Bld) [#/Vol] 223 10*3/uL 150-450 [facility] Protein [Mass/volume] in Ser um or PlasmaOrdered By: Kaushik Payan on 10-06-2021 Protein [Mass/Vol] 7.0 g/dL 6.1-7.9 [facility] RBC Auto (Bld) [#/Vol]Ordere d By: Kaushik Payan on 10-06-2021 RBC (Bld) [#/Vol] 4.61 10*6/uL 3.60-5.00 [facility] Serum or plasma alanine johnson otransferase measurement without P-5'-P (enzymatic activiOrdered By: Kaushik Payan on 10-06-2021 ALT No additional P-5'-P [Catalytic activity/Vol] 19 U/L 10-60 [facility] Serum or plasma albumin/glob ulin mass ratioOrdered By: Kaushik Payan on 10-06-2021 Albumin/Globulin [Mass ratio] 1.4 {ratio} [facility] Serum or plasma alkaline cristhian sphatase measurement (enzymatic activity/volume)Ordered By: Kaushik Payan on 10-06-2021 ALP [Catalytic activity/Vol] 83 U/L 32-92 [facility] Serum or plasma aspartate am inotransferase measurement (enzymatic activity/volume)Ordered By: Kaushik Payan on 10-06-2021 AST [Catalytic activity/Vol] 20 U/L 10-42 [facility] Serum or plasma calcium austin urement (mass/volume)Ordered By: Kaushik Payan on 10-06-2021 Calcium [Mass/Vol] 9.6 mg/dL 8.2-10.2 [facility] Serum or plasma chloride mynor surement (moles/volume)Ordered By: Kaushik Payan on 10-06-2021 Chloride [Moles/Vol] 101 mmol/L 95-114 [facility] Serum or plasma glucose austin urement (mass/volume)Ordered By: Kaushik Payan on 10-06-2021 Glucose [Mass/Vol] 84 mg/dL 70-100 [facility] Comment on above: ADA recommended refe rence range Random Glucose Reference Range is dependent on time and content of last meal. Glucose of more than 200 mg/dL in a nonstressed, ambulatory subject supports the diagnosis of Diabetes Mellitus. Serum or plasma potassium me asurement (moles/volume)Ordered By: Kaushik Payan on 10-06-2021 Potassium [Moles/Vol] 4.5 mmol/L 3.5-5.1 [facility] Serum or plasma sodium measu rement (moles/volume)Ordered By: Kaushik Payan on 10-06-2021 Sodium [Moles/Vol] 138 mmol/L 136-146 [facility] Serum or plasma total biliru bin measurement (mass/volume)Ordered By: Kaushik Payan on 10-06-2021 Bilirubin [Mass/Vol] 0.6 mg/dL 0.3-1.2 [facility] Serum or plasma total carbon dioxide measurement (moles/volume)Ordered By: Kaushik Payan on 10-06-2021 CO2 [Moles/Vol] 26.9 mmol/L 22.0-30.0 [facility] Serum or plasma urea nitroge n measurement (mass/volume)Ordered By: Kaushik Payan on 10-06-2021 Urea nitrogen [Mass/Vol] 20 mg/dL 9-23 [facility] Urine microalbumin measureme nt with detection limit of 20 mg/L or less (mass/volume)Ordered By: Kaushik Payan on 10-06-2021 Albumin DL <= 20 mg/L (U) [Mass/Vol] 0.7 mg/dL 0.0-1.8 [facility] XR Abdomen Single View (KUB) *on 08-23-2021 XR Abdomen Single View (KUB)* Refer to concurrent lumbar radiograph dictation. Report reported and signed by Rajesh Diego on 08/23/2021 1406 Normal [facility] [employer] XR Spine Lumbar 4+ Views*on 08-23-2021 XR Spine Lumbar 4+ Views* CLINICAL HISTORY: Right-sided flank pain. Urgency for 4 days. No known injury. History of lumbar fusion, cholecystectomy, and kidney stones. COMPARISON: None. RESULT: Abdominal radiographs: Nonspecific nondilated bowel gas pattern. Feces throughout the colon. No abnormal calcifications. Surgical clips right upper quadrant. Lung bases unremarkable. No acute osseous findings. See below for lumbar findings. Lumbar spine: Counting reference of L4-L5 considered the last well-formed disc space. Mild to moderate rotary levoscoliosis. Straightening of the lumbar lordosis. No radiographic evidence for acute fracture. Multilevel disc space narrowing with endplate osteophytes. Facet degenerative changes. Visualized sacrum appears intact. No acute osseous findings in the bony pelvis or visualized hips. Degenerative changes SI joints. Aortic vascular calcification. No other significant abnormality. IMPRESSION: No acute radiographic findings involving the abdomen or lumbar spine. Report reported and signed by Rajesh Diego on 08/23/2021 1406 Normal [facility] [employer] Tobacco Screening.on 021 Fall risk assessment a) No falls within the last year [facility] [facility] DO Work Phone: Tobacco use status [facility] b) No [facility] DO Work Phone: Vital Signs Date Time Vital Sign Value Performing Clinician Facility 03-21-2023 15:40-0500 Body height 162.6 cm Mj Mishra MD Work Phone: [facility] 03-21-2023 15:40-0500 Body mass index (BMI) [Ratio] 26.95 kg/m2 Mj Mishra MD Work Phone: [facility] 03-21-2023 15:40-0500 Body weight 71.22 kg Mj Mishra MD Work Phone: [facility] 03-21-2023 15:40-0500 Diastolic blood pressure 56 mm[Hg] Mj Mishra MD Work Phone: [facility] 03-21-2023 15:40-0500 Heart rate 60 /min Mj Mishra MD Work Phone: [facility] 03-21-2023 15:40-0500 Systolic blood pressure 136 mm[Hg] Mj Mishra MD Work Phone: [facility] 03-11-2022 08:59-0500 Body height 162.56 cm Kaushik P House Work Phone: [facility] 250 DO Work Phone: 03-11-2022 08:59-0500 Body mass index (BMI) [Ratio] 26.95 kg/m2 Kaushik P House Work Phone: [facility] 250 DO Work Phone: 03-11-2022 08:59-0500 Body surface area Derived from formula 1.76 m2 Kaushik P House Work Phone: [facility] 250 DO Work Phone: 03-11-2022 08:59-0500 Body weight 71.22 kg Kaushik P House Work Phone: [facility] 250 DO Work Phone: 03-11-2022 08:59-0500 Diastolic blood pressure 70 mm[Hg] Kaushik P House Work Phone: [facility] 250 DO Work Phone: 03-11-2022 08:59-0500 Heart rate 64 /min Kaushik P House Work Phone: [facility] 250 DO Work Phone: 03-11-2022 08:59-0500 Systolic blood pressure 130 mm[Hg] Kaushik P House Work Phone: [facility] 250 DO Work Phone: 12-11-2021 12:25-0400 Body temperature 98.3 [degF] DO Kaushik House Work Phone: [facility] 12-11-2021 12:25-0400 Diastolic blood pressure 67 mm[Hg] DO Kaushik House Work Phone: [facility] 12-11-2021 12:25-0400 Heart rate 54 /min DO Kaushik House Work Phone: [facility] 12-11-2021 12:25-0400 Respiratory rate 16 /min DO Kaushik House Work Phone: [facility] 12-11-2021 12:25-0400 SaO2% (BldA) [Mass fraction] 98 % DO Kaushik House Work Phone: [facility] 12-11-2021 12:25-0400 Systolic blood pressure 147 mm[Hg] DO Kaushik House Work Phone: [facility] 12-11-2021 10:14-0400 Body height 162.56 cm DO Kaushik House Work Phone: [facility] 12-11-2021 10:14-0400 Body weight 73 kg DO Kaushik House Work Phone: [facility] 11-24-2021 01:38-0400 Body height 162.56 cm DO Kaushik House Work Phone: [facility] 11-24-2021 01:38-0400 Body temperature 97.8 [degF] DO Kaushik House Work Phone: [facility] 11-24-2021 01:38-0400 Body weight 80.73 kg DO Kaushik House Work Phone: [facility] 11-24-2021 01:38-0400 Diastolic blood pressure 91 mm[Hg] DO Kaushik House Work Phone: [facility] 11-24-2021 01:38-0400 Heart rate 57 /min DO Kaushik House Work Phone: [facility] 11-24-2021 01:38-0400 Respiratory rate 18 /min DO Kaushik House Work Phone: [facility] 11-24-2021 01:38-0400 SaO2% (BldA) [Mass fraction] 96 % DO Kaushik House Work Phone: [facility] 11-24-2021 01:38-0400 Systolic blood pressure 192 mm[Hg] DO Kaushik House Work Phone: [facility] 10-21-2021 06:08-0400 Diastolic blood pressure 64 mm[Hg] DO Kaushik House Work Phone: [facility] 10-21-2021 06:08-0400 Heart rate 74 /min DO Kaushik House Work Phone: [facility] 10-21-2021 06:08-0400 Respiratory rate 18 /min DO Kaushik House Work Phone: [facility] 10-21-2021 06:08-0400 SaO2% (BldA) [Mass fraction] 98 % DO Kaushik House Work Phone: [facility] 10-21-2021 06:08-0400 Systolic blood pressure 140 mm[Hg] DO Kaushik House Work Phone: [facility] 10-21-2021 03:03-0400 Body height 162.56 cm DO Kaushik House Work Phone: [facility] 10-21-2021 03:03-0400 Body mass index (BMI) [Ratio] 27.6 kg/m2 DO Kaushik House Work Phone: [facility] 10-21-2021 03:03-0400 Body weight 73.15 kg DO Kaushik House Work Phone: [facility] 10-21-2021 03:01-0400 Body temperature 97.9 [degF] DO Kaushik House Work Phone: [facility] 03-11-2021 14:51-0500 Body height 162.56 cm Kaushik P House Work Phone: [facility] 250 DO Work Phone: 03-11-2021 14:51-0500 Body mass index (BMI) [Ratio] 27.81 kg/m2 Kaushik P House Work Phone: [facility] 250 DO Work Phone: 03-11-2021 14:51-0500 Body surface area Derived from formula 1.79 m2 Kaushik P House Work Phone: [facility] 250 DO Work Phone: 03-11-2021 14:51-0500 Body weight 73.48 kg Kaushik P House Work Phone: [facility] 250 DO Work Phone: 03-11-2021 14:51-0500 Diastolic blood pressure 58 mm[Hg] Kaushik P House Work Phone: [facility] 250 DO Work Phone: 03-11-2021 14:51-0500 Heart rate 66 /min Kaushik P House Work Phone: [facility] 250 DO Work Phone: 03-11-2021 14:51-0500 Systolic blood pressure 136 mm[Hg] Kaushik P House Work Phone: [facility] 250 DO Work Phone: Encounters Encounter Date Encounter Type Care Provider Facility Start: 08-08-2023 End: 08-09-2023 ambulatory KAUSHIK P HOUSE Facility:[facility] Cli tadeo Start: 07-31-2023 End: 08-01-2023 ambulatory KAUSHIK P HOUSE Facility:[facility] Cli tadeo Start: 05-24-2023 End: 05-24-2023 ambulatory STEPHAN LIZA V [facility] Start: 05-08-2023 End: 05-08-2023 ambulatory STEPHAN LIZA V [facility] Start: 05-02-2023 End: 05-02-2023 ambulatory FEROZ JOHNSTON Not Available Start: 04-27-2023 End: 04-27-2023 ambulatory STEPHAN LIZA V Facility[facility] Start: 04-27-2023 Encounter for other preprocedural examination STEPHAN LIZA V [facility] Start: 04-17-2023 End: 04-17-2023 ambulatory STEPHAN GE V Facility[facility] Start: 03-21-2023 End: 03-21-2023 ambulatory [facility] Amb[facility] Start: 03-21-2023 End: 03-21-2023 Office outpatient visit 15 minutes Mj Mishra MD Work Phone: [facility] Comment on above: Shortness of breath (Primary Dx); Essential hypertension; Mixed hyperlipidemia; BMI 26.0-26.9,adult Start: 03-10-2023 End: 03-10-2023 ambulatory Susanlay Hungno Facility:[facility] Start: 03-07-2023 End: 03-07-2023 ambulatory STEPHAN GE V Facility[facility] Start: 03-07-2023 End: 03-07-2023 Patient encounter procedure Stephan Ge MD Work Phone: Ophthalmology Comment on above: Combined forms of ag e-related cataract of both eyes (Primary Dx); Vitreous degeneration, bilateral Start: 03-07-2023 End: 03-08-2023 ambulatory Dat TORREZ Facility:[facility] Start: 02-28-2023 End: 02-28-2023 ambulatory Dat Torrez Facility:[facility] Start: 02-28-2023 End: 02-28-2023 ambulatory DO Kaushik House Work Phone: [facility] Work Phone: Start: 02-28-2023 End: 02-28-2023 Patient encounter procedure DO Kaushik House Work Phone: [facility]-XRay [facility] Work Phone: Start: 09-21-2022 End: 09-22-2022 ambulatory Dat TORREZ [facility] Start: 09-16-2022 End: 09-16-2022 Emergency department patient visit Eulogio Hartley Facility:[facility] Start: 08-09-2022 End: 08-10-2022 ambulatory Dat TORREZ [facility] Start: 08-05-2022 End: 08-05-2022 ambulatory Dat Torrez Facility:[facility] Start: 08-05-2022 End: 08-05-2022 ambulatory DO Kaushik Payan Work Phone: [facility] Work Phone: Start: 08-05-2022 End: 08-05-2022 Patient encounter procedure DO Kaushik Payan Work Phone: [facility]-XRay [facility] Work Phone: Start: 07-27-2022 End: 07-28-[address] KAUSHIK PAYAN Facility: Start: 06-29-2022 Telephone encounter Kaushik Colon Mason Work Phone: [facility] 250 DO Work Phone: Start: 03-11-2022 Office outpatient vi sit 15 minutes Kaushik Isaiah Mason Work Phone: [facility] 250 DO Work Phone: Start: 03-11-[address] [facility] Facility: Start: 03-07-2022 Chart Update Kaushik Colon Hous e Work Phone: [facility] DO Work Phone: Start: 12-22-2021 End: 12-22-2021 Patient encounter procedure DO Kaushik Payan Work Phone: [facility]-ay [facility] Start: 12-11-2021 End: 12-11-2021 Emergency department patient visit DO Kaushik Payan Work Phone: [facility]-Emergency Room Start: 11-24-2021 End: 11-24-2021 Emergency department patient visit DO Kaushik Payan Work Phone: [facility] Start: 10-21-2021 End: 10-21-2021 Emergency department patient visit DO Kaushik Payan Work Phone: [facility] Start: 10-06-2021 End: 10-06-2021 Patient encounter procedure DO Kaushik Payan Work Phone: [facility]-Lab [facility] [place] Start: 09-24-2021 Telephone encounter Kaushik Colon House Work Phone: [facility] 250 DO Work Phone: Start: 06-16-2021 Rx Renewal Kaushik P Hous e Work Phone: [facility] 250 DO Work Phone: Start: 06-14-2021 Rx Renewal Kaushik P Hous e Work Phone: [facility] 250 DO Work Phone: Start: 03-11-2021 Office outpatient vi sit 25 minutes Kaushik P House Work Phone: [facility] 250 DO Work Phone: Start: 10-05-2017 Ambulatory MOURHAF TRABMICHELETI Faci lity:[id number] Procedures Date Procedure Procedure Detail Performing Clinician Start: 02-28-2023 Diagnostic radiograp hy of abdomen DO Kaushik Payan Work Phone: Start: 08-05-2022 Diagnostic radiograp hy of abdomen DO Kaushik Payan Work Phone: Start: 12-22-2021 Diagnostic radiograp hy of abdomen DO Kaushik Payan Work Phone: Start: 12-11-2021 CT of abdomen and pe lvis without contrast DO Kaushik Payan Work Phone: Start: 04-16-2019 Echocardiography Augmentation mammoplasty Allyn rles P House Work Phone: section Kaushik P H ouse Work Phone: Cholecystectomy Kaushik P Ho use Work Phone: Hysterectomy Kaushik P House Work Phone: Procedure on back Kaushik P House Work Phone: Release of trigger finger Ch sherly P House Work Phone: Comment on above: 1 on right, 2 on lef t; Total colonoscopy Kaushik Payan Work Phone: Urine culture DO Kaushik Ro se Work Phone: Urine culture DO Kaushik Ro se Work Phone: Plan of Treatment Date Care Activity Detail Author Start: 03-22-2024 End: 03-22-2024 Patient encounter procedure 03/22/2024 10:30 AM EST Office Visit [facility] [address] [facility] [address] [place] [id number] Mj Mishra MD [address] [place] [address] [facility] Start: 03-11-2024 ambulatory Ambulatory Facility:[facility] Start: 03-24-2023 FUV, Provider: Mj Mishra, Status: Pen, Time: 8:50 AM FUV, Provider: Mj Mishra, Status: Pen, Time: 8:50 AM [facility] 250 DO Work Phone: Start: 12-30-2022 Covid-19 Vaccine ( season) Covid-19 Vaccine ( season) [facility] Start: 12-30-2022 Influenza vaccination Influenza Vaccine (#1) [facility] Start: 05-01-2022 Advance Directive Discussion Advance Directive Discussion [facility] Start: 05-01-2022 Depression Assessment Depression Assessment [facility] Start: 03-11-2022 FUV, Provider: Mj Mishra, Status: Pen, Time: 8:50 AM FUV, Provider: Mj Mishra, Status: Pen, Time: 8:50 AM [facility] 250 DO Work Phone: Start: 12-22-2021 Diagnostic radiography of abdomen XR KUB [facility] Start: 12-22-2021 End: 12-22-2021 Patient encounter procedure Departed Clinical [facility] Start: 04-08-2021 COVID-19 Vaccine (4 - Pfizer series) COVID-19 Vaccine (4 - Pfizer series) [facility] Start: 2014 Bone Density Screening Bone Density Screening [facility] Start: 2009 RSV Vaccine (1 - 1-dose 60+ series) RSV Vaccine (1 - 1-dose 60+ series) [facility] Start: 09-13-1999 Shingrix Vaccine (1 of 2) Shingrix Vaccine (1 of 2) [facility] Start: 09-13-1999 Zoster Vaccines (1 of 2) Zoster Vaccines (1 of 2) [facility] Start: 1994 Cologuard (FIT-DNA) Cologuard (FIT-DNA) [facility] Start: 1994 Colonoscopy Colonoscopy [facility] Start: 1994 Colorectal Cancer Screening Colorectal Cancer Screening [facility] Start: [address] Colonography [facility] Start: 1994 Diabetes Screening Diabetes Screening [facility] Start: 1994 Fecal Occult Blood Fecal Occult Blood [facility] Start: 1994 Lipid 1996 panel - Serum or Plasma Lipid Screening [facility] Start: 1994 Sigmoidoscopy Sigmoidoscopy [facility] Start: 1989 Mammography Mammogram Screening [facility] Start: 1989 Screening for malignant neoplasm of breast Mammogram [facility] Start: 09-13-1971 DTaP/Tdap/Td Vaccines (1 - Tdap) DTaP/Tdap/Td Vaccines (1 - Tdap) [facility] Start: 1968 Urine microalbumin profile DTaP,Tdap,Td Vaccine (1 - Tdap) [facility] Start: 1968 Urine screening for protein Diabetes: Urine Protein Screening [facility] Start: 09-13-1967 Hepatitis C Screening Hepatitis C Screening [facility] Start: 09-13-1967 Hepatitis C screening Hepatitis C Screening [facility] Start: 09-13-1959 Diabetic foot examination Diabetes: Foot Exam [facility] Start: 09-13-1959 Glaucoma screening Diabetes: Retinopathy Screening [facility] Start: 1949 Hemoglobin A1c measurement Diabetes: Hemoglobin A1C [facility] Start: 1949 Lipid panel Lipid Panel [facility] Start: 1949 Medicare Annual Wellness Visit Medicare Annual Wellness Visit (AWV) [facility] Start: 1949 Screening for malignant neoplasm of colon [facility] Start: 1949 Screening for osteoporosis Bone Density Scan [facility] CORNEAL TOPOGRAPHY A TLAS OU (BOTH EYES) CORNEAL TOPOGRAPHY ATLAS OU (BOTH EYES) OPHT Imaging Routine Combined forms of age-related cataract of both eyes 03/07/2023 2:07 PM EST [facility] Work Phone: OCT MACULA CIRRUS OU (BOTH EYES) OCT MACULA CIRRUS OU (BOTH EYES) OPHT Imaging Routine Combined forms of age-related cataract of both eyes 03/07/2023 2:30 PM EST [facility] Work Phone: Patient Education [facility] Work Phone: Patient referral [facility] Work Phone: [facility] Immunizations Immunization Date Immunization Notes Care Provider Wagner ibarra 02-11-2021 Pfizer-BioNTech COVI D-19 Vacc 30 MCG/0.3ML Intramuscular Suspension Kaushik P [facility] Work Phone: [facility] [employer] DO Work Phone: Comment on above: Series: 07-31-2020 Pfizer-BioNTech COVI D-19 Vacc 30 MCG/0.3ML Intramuscular Suspension Kaushik P [facility] Work Phone: [facility] Comment on above: Series: 07-10-2020 Pfizer-BioNTech COVI D-19 Vacc 30 MCG/0.3ML Intramuscular Suspension Kaushik P [facility] Work Phone: [facility] Comment on above: Series: 05-01-2016 pneumococcal polysaccharide vaccine, 23 valent Kaushik P [facility] Work Phone: [facility] 250 DO Work Phone: Comment on above: Series: 01-12-2016 pneumococcal conjuga te vaccine, 13 valent Kaushik P [facility] Work Phone: [facility] 250 DO Work Phone: Comment on above: Series: 05-01-1974 influenza, injectabl e, quadrivalent, preservative free Kaushik Colon House Work Phone: [facility] 250 DO Work Phone: Comment on above: Series: Payers Date Payer Category Payer Self-pay [id number] 2021 Unknown 2014 Medicare [id number] 1959 Medicare [id number] 1959 Unknown [id number] 1949 Unknown [id number] 2.16. [id number] 1949 Unknown [id number] 2.16.84 [id number] 1949 Unknown [id number] 2.16.8 [id number] 1949 Unknown [id number] 2.16.8 [id number] 1949 Unknown [id number] 2.16.8 [id number] 1949 Unknown [id number] 2.16.8 [id number] 1949 Unknown [id number] 2.16.8 [id number] 1949 Unknown [id number] 2.16.840 [id number] 1949 Unknown [id number] 2.16.8 [id number] 1949 Unknown [id number] 2.16.8 [id number] Medicare [id number] Private Health Insurance [id number] Unknown [id number] 2.16.8 [id number] Unknown [id number] 2.16.8 [id number] Unknown [id number] 2.16.8 [id number] Unknown [id number] 2.16.8 [id number] Social History Date Type Detail Facility Start: 03-20-2023 No alcohol use No alcohol use [place] [address] DO Work Phone: Comment on above: 1 cups coffee daily, 1 Coke daily; Start: 12-11-2021 End: 03-20-2023 Tobacco smoking status NHIS Never smoked tobacco (finding) [facility] Start: 1950 Sex Assigned At Female F [facility] Start: 03-07-2023 End: 03-20-2023 Tobacco use and exposure Smokeless tobacco non-user [facility] Start: 03-07-2023 Alcohol intake Ex-drinker (finding) [facility] Start: 1950 [facility] Start: 03-20-2023 Gender identity Not on file [facility] Start: 03-21-2023 Alcohol intake Lifetime non-d ish (finding) [facility] Work Phone: Start: 03-11-2023 End: 03-21-2023 Exposure to SARS-CoV-2 (event) Not sure [facility] Clinical Notes 03-07-2023 to 09-08-2023 Mj Mishra MD - 03/21/2023 3:50 PM ESTPatient InstructionsAddendum Note - Alissa Baum - 03/07/2023 3:33 PM Stephan Fuentes V, MD - 03/07/2023 3:11 PM EST Note Date & Type Note Facility 09-08-2023 Note - From: KAUSHIK PAYAN DO Cc: [facility] Sent: 09/08/2023 18:12:03 EDT Subject: FW: Medication Management Due Date/Time: 09/09/2023 13:52:00 EDT Caller Name: JENAE KNAPP; Caller Number: [id number] --------- From: [employer] [id number] To: KAUSHIK PAYAN DO Sent: September 08, 2023 12:52:00 PM CDT Subject: Medication Management Due: September 09, 2023 12:02:10 AM CDT On Hold Pending Signature Dispensed Drug: pregabalin (pregabalin 50 mg oral capsule), TAKE 1 CAPSULE BY MOUTH TWICE A DAY Quantity: 60 cap(s) Days Supply: 30 Refills: 0 Substitutions Allowed Notes from Pharmacy: Not to exceed 5 additional fills before 02/04/2024 --------- [facility] 04-27-2023 Note HNO ID: [id number] Author: Charo Ambrocio COA Service: ? Author Type: Manager Video Games Type: Progress Notes Filed: 04/27/2023 2:01 PM Note Text: CONFIRM PROCEED WITH MINI MONO. RIGHT EYE AIM PLANO LEFT EYE AIM -1.50 CHARLEE Chapman [facility] 03-21-2023 History of Present illness Narrative Subjective Jenae Knapp is a 72 y.o. female Chief Complaint Annual Exam HPI Patient is here for follow-up continue management for previous evaluation for chest pain and shortness of breath, hypertension, hyperlipidemia. Since last time I saw her she denies any cardiac complaint of chest pain, palpitation, lightheadedness, dizziness or syncope. She describes some tingling sensation and pain in her lower extremity. She is diabetic and had a prior venous history of back surgery. Her symptoms suggestive of neuropathy. ASSESSMENT: 1. Prior complaint of chest pain and shortness of breath. Patient reported improvement. Her recent cardiac workup including stress test and echocardiogram are negative and reassuring. She report complete resolution of that 2. Hypertension, controlled. 3. Hyperlipidemia, recent lab noted and controlled 4. Obesity with no significant weight changes 5. Very strong family history of coronary artery disease. 6. Back pain and patient reports symptoms suggestive of peripheral neuropathy 7. Diabetes RECOMMENDATION: 1. The patient was counseled regarding risk factor adjustment And primary prevention 2. . The patient was advised to lose weight and exercise. 3. I I reviewed with her her recent lab work 4. Follow-up in 1 year and I advised her to consider seeing a neurologist for her symptoms of neuropathy Review of Systems Neurological: Positive for numbness and paresthesias. Foot pain top and bottom Visit Vitals BP 136/56 (BP Location: Right arm, Patient Position: Sitting) Pulse 60 Ht 1.626 m (5' 4 ) Wt 71.2 kg (157 lb) BMI 26.95 kg/m Smoking Status Never BSA 1.79 m Objective Physical Exam Constitutional: Appearance: Normal appearance. She is normal weight. HENT: Nose: Nose normal. Neck: Vascular: No carotid bruit. Cardiovascular: Rate and Rhythm: Normal rate. Pulses: Normal pulses. Heart sounds: Normal heart sounds. Pulmonary: Effort: Pulmonary effort is normal. Abdominal: General: Bowel sounds are normal. Palpations: Abdomen is soft. Genitourinary: Rectum: Normal. Musculoskeletal: General: Normal range of motion. Cervical back: Normal range of motion. Right lower leg: No edema. Left lower leg: No edema. Skin: General: Skin is warm and dry. Neurological: General: No focal deficit present. Mental Status: She is alert. Psychiatric: Mood and Affect: Mood normal. Behavior: Behavior normal. Thought Content: Thought content normal. Judgment: Judgment normal. Current Medications Current Outpatient Medications: atorvastatin (Lipitor) 40 mg tablet, Take 1 tablet (40 mg) by mouth once daily at bedtime., Disp: , Rfl: hydroCHLOROthiazide (HYDRODiuril) 12.5 mg tablet, Take 1 tablet (12.5 mg) by mouth once daily., Disp: , Rfl: lisinopril 10 mg tablet, Take 1 tablet (10 mg) by mouth once daily., Disp: , Rfl: meloxicam (Mobic) 15 mg tablet, Take 1 tablet (15 mg) by mouth once daily., Disp: , Rfl: metFORMIN (Glucophage) 500 mg tablet, Take 0.5 tablets (250 mg) by mouth 2 times a day with meals., Disp: , Rfl: verapamil ER (Veralan PM) 120 mg 24 hr capsule, Take 1 capsule (120 mg) by mouth 2 times a day., Disp: , Rfl: Assessment/Plan 1. Shortness of breath Follow Up In Cardiology 2. Essential hypertension Follow Up In Cardiology 3. Mixed hyperlipidemia 4. BMI 26.0-26.9,adult documented in this encounter [facility] Work Phone: 03-21-2023 Instructions Savannah Mayen LPN - 03/21/2023 3:50 PM EST Please bring all medicines, vitamins, and herbal supplements with you when you come to the office. Prescriptions will not be filled unless you are compliant with your follow up appointments or have a follow up appointment scheduled as per instruction of your physician. Refills should be requested at the time of your visit. One year with ekg documented in this encounter [facility] Work Phone: 03-07-2023 Note HNO ID: [id number] Author: Stephan Ge V, MD Service: ? Author Type: Physician Type: Progress Notes Filed: 03/07/2023 3:26 PM Note Text: The documentation for this note was completed by ARMIN Velasco acting as a scribe for Stephan GE MD. 03/07/2023 3:11 PM. ASSESSMENT / PLAN: 1. Combined cataract, both eyes - Offered cataract extraction by phacoemulsification and intraocular lens implant with Dr. Ge, both eyes, left eye first - Aim: -1.50 Left eye, plano Right eye [low myope, occ reads without specs] - Flomax/alpha-jerry? No - Toric candidate: No - PanOptix candidate: No - Anesthesia: Topical with MAC - Contact lens use No - History of LASIK/PRK/RK No - Discussed initiate twice daily eyelid scrubs pending U/S biometry and surgery - Comanage with Dr Carr; [facility] ([facility]) express POD #1 Cataract Presurgical Documentation Cataract: Left eye (OS) then Right eye (OD) Current Visual Acuity Right Eye Distance CC 20/30 Left Eye Distance CC 20/25 Glare Testing: Right Eye High less than 20/400 Left Eye High less than 20/400 Visual Function: Jenae Knapp states that the decline in vision from the cataract impedes her abilities as listed in the HPI, as well as other activities of daily living. Jenae Knapp has confirmed that she is no longer able to function adequately on a day-to-day basis because of her current visual condition. Further, it is my medical opinion that the cataract is the primary cause, or at least a significantly contributory cause of her visual dysfunction. With uncomplicated cataract surgery and lens implantation, it is my expectation that her visual function and quality of life will improve significantly. The risks, benefits, alternatives, personnel and complications of cataract surgery with lens implantation were discussed with Jenae Knapp in detail. These included, but are not limited to: infection, bleeding, loss of vision, and the need for additional surgery. she appeared to understand and asked that I proceed with plans for surgery. Patient acknowledges possible need for glasses after procedure. Intraocular lens options were discussed with patient. If patient was a good candidate for multifocal Intraocular lenses, risk of halos, glare, and possible need for glasses was discussed. Informed consent form signed by physician and patient. Literature regarding cataract and cataract extraction by phacoemulsification offered. Return for preadmission testing, biometry AND intraocular lens calculations prior to surgery. The patient was offered a surgery/procedure at a [facility] facility. The surgeon/proceduralist and patient have discussed in detail the risk of exposure to and/or potential harm posed by the COVID-19 virus with having a surgery/procedure at this time versus the risk of delaying the surgery/procedure. It is not possible to know either the risk of delaying the surgery or procedure or chance of getting an infection with perfect accuracy, but a joint decision was made between the patient and the surgeon/proceduralist to proceed at this time with the scheduled surgery/procedure as indicated on the consent form. The documentation recorded by the scribe accurately reflects the service I personally performed and the decisions made by me. I have confirmed and edited as necessary the relevant ophthalmic history, ROS, and the exam findings as obtained by others. I have seen and examined Jenae Knapp. I also have reviewed and agree with the assessment and plan as stated above and agree with all of its relevant components. Stephan GE MD March 07, 2023 3:11 PM [facility] 03-07-2023 Note HNO ID: [id number] Author: Duong Corado OD Service: ? Author Type: AEROSOL SUPERVISOR Type: Progress Notes Filed: 03/07/2023 3:26 PM Note Text: ASSESSMENT/PLAN: 1. Combined forms of age-related cataract of both eyes - ICD9: 366.19, ICD10: H25.813 (primary diagnosis) Bright sunlight glare signs and/or symptoms Dr Stephan Ge Cataract evaluation today 2. Vitreous degeneration, bilateral - ICD9: 379.21, ICD10: H43.813 Monitor I have confirmed and edited as necessary the relevant ophthalmic history, ROS, and the exam findings as obtained by others. I have seen and examined this patient. I also have reviewed and agree with the assessment and plan as stated above and agree with all of its relevant components. Duong Corado, OD March 07, 2023 2:44 PM [facility] 03-07-2023 Miscellaneous Notes Addended by: ALISSA BAUM on: 03/07/2023 03:33 PM Modules accepted: Orders documented in this encounter [facility] 03-07-2023 History of Present illness Narrative The documentation for this note was completed by ARMIN Velasco acting as a scribe for Stephan GE MD. 03/07/2023 3:11 PM. ASSESSMENT / PLAN: 1. Combined cataract, both eyes - Offered cataract extraction by phacoemulsification and intraocular lens implant with Dr. Ge, both eyes, left eye first - Aim: -1.50 Left eye, plano Right eye [low myope, occ reads without specs] - Flomax/alpha-jerry? No - Toric candidate: No - PanOptix candidate: No - Anesthesia: Topical with MAC - Contact lens use No - History of LASIK/PRK/RK No - Discussed initiate twice daily eyelid scrubs pending U/S biometry and surgery - Comanage with Dr Carr; [facility] POD #1 Cataract Presurgical Documentation Cataract: Left eye (OS) then Right eye (OD) Current Visual Acuity Right Eye Distance CC 20/30 Left Eye Distance CC 20/25 Glare Testing: Right Eye High less than 20/400 Left Eye High less than 20/400 Visual Function: Jenae Knapp states that the decline in vision from the cataract impedes her abilities as listed in the HPI, as well as other activities of daily living. Jenae Knapp has confirmed that she is no longer able to function adequately on a day-to-day basis because of her current visual condition. Further, it is my medical opinion that the cataract is the primary cause, or at least a significantly contributory cause of her visual dysfunction. With uncomplicated cataract surgery and lens implantation, it is my expectation that her visual function and quality of life will improve significantly. The risks, benefits, alternatives, personnel and complications of cataract surgery with lens implantation were discussed with Jenae Knapp in detail. These included, but are not limited to: infection, bleeding, loss of vision, and the need for additional surgery. she appeared to understand and asked that I proceed with plans for surgery. Patient acknowledges possible need for glasses after procedure. Intraocular lens options were discussed with patient. If patient was a good candidate for multifocal Intraocular lenses, risk of halos, glare, and possible need for glasses was discussed. Informed consent form signed by physician and patient. Literature regarding cataract and cataract extraction by phacoemulsification offered. Return for preadmission testing, biometry & intraocular lens calculations prior to surgery. The patient was offered a surgery/procedure at a [facility] facility. The surgeon/proceduralist and patient have discussed in detail the risk of exposure to and/or potential harm posed by the COVID-19 virus with having a surgery/procedure at this time versus the risk of delaying the surgery/procedure. It is not possible to know either the risk of delaying the surgery or procedure or chance of getting an infection with perfect accuracy, but a joint decision was made between the patient and the surgeon/proceduralist to proceed at this time with the scheduled surgery/procedure as indicated on the consent form. The documentation recorded by the scribe accurately reflects the service I personally performed and the decisions made by me. I have confirmed and edited as necessary the relevant ophthalmic history, ROS, and the exam findings as obtained by others. I have seen and examined Jenae Knapp. I also have reviewed and agree with the assessment and plan as stated above and agree with all of its relevant components. Stephan GE MD March 07, 2023 3:11 PM ASSESSMENT/PLAN: 1. Combined forms of age-related cataract of both eyes - ICD9: 366.19, ICD10: H25.813 (primary diagnosis) Bright sunlight glare signs and/or symptoms Dr Stephan Ge Cataract evaluation today 2. Vitreous degeneration, bilateral - ICD9: 379.21, ICD10: H43.813 Monitor I have confirmed and edited as necessary the relevant ophthalmic history, ROS, and the exam findings as obtained by others. I have seen and examined this patient. I also have reviewed and agree with the assessment and plan as stated above and agree with all of its relevant components. Duong Corado, ADELFO March 07, 2023 2:44 PM documented in this encounter [facility] Evaluation note No assessment inform ation available [facility] Work Phone: Evaluation note Diagnosis Combined forms of age-related cataract of both eyes- Primary Other and combined forms of senile cataract Vitreous degeneration, bilateral [facility] Diagnosis Shortness of breath- Primary Essential hypertension Unspecified essential hypertension Mixed hyperlipidemia BMI 26.0-26.9,adult documented in this encounter [facility] Work Phone: History of Present illness Narrative* Patient is here for follow-up continue management for previous evaluation for chest pain, shortnessof breath, hypertension hyperlipidemia. Since last time I saw her she denies any complaint of chestpain, palpitation, lightheadedness, dizziness or syncope. She remains fairly active. Recent laboratory data noted and reviewed with her. * ASSESSMENT: * 1. Prior complaint of chest pain and shortness of breath. Patient reported improvement. Her recent cardiac workup including stress test and echocardiogram are negative and reassuring.. * 2. Hypertension, controlled. * 3. Hyperlipidemia, well controlled * 4. Obesity with minor couple of pounds weight loss * 5. Very strong family history of coronary artery disease. * RECOMMENDATION: * 1. The patient was counseled regarding risk factor adjustment. * 2. . The patient was advised to lose weight and exercise. * 3. I congratulated the patient on her weight loss * 4. I reviewed with her her recent lab work * 5. Follow-up in 1 year we will plan to repeat lab work prior to next office visit. [facility] Work Phone: History of Present illness Narrative* For follow-up continue management for previous evaluation for chest pain and shortness of breath. Her cardiac work-up was benign. She reported complete resolution of her symptoms after she switched her job to a less stressful job. She feels well. She denies lightheadedness, dizziness or syncope. Recent laboratory data noted and reviewed with her. * ASSESSMENT: * 1. Prior complaint of chest pain and shortness of breath. Patient reported improvement. Her recent cardiac workup including stress test and echocardiogram are negative and reassuring... To have stressful job and her symptoms completely resolved after switching job * 2. Hypertension, controlled. * 3. Hyperlipidemia, recent lab noted and controlled * 4. Obesity with 5 pounds weight loss * 5. Very strong family history of coronary artery disease. * RECOMMENDATION: * 1. The patient was counseled regarding risk factor adjustment And primary prevention * 2. . The patient was advised to lose weight and exercise. * 3. I I reviewed with her her recent lab work * 4. Follow-up in 1 year we will plan to repeat lab work prior to next office visit. [facility] Work Phone: Reason for referral (narrative)* Consultation (Routine) - Authorized Specialty Diagnoses / Procedures Referred By Toby t Referred To Contact Cardiology Diagnoses Shortness of breath Essential hypertension Procedures Follow Up In Cardiology Mj Mishra MD [address] [facility] [address] [place] [address] Mj Mishra MD [address] [facility] [address] [place] [address] Referral ID Status Reason Start Date Expiration Date V isits Requested Visits Authorized [id number] Authorized 03/21/2023 03/20/2024 1 1 [facility] Work Phone: Summary Purpose Family History No Family History Records FoundUnknown Family Member Name Dates Details Family history of cerebrovas cular accident (CVA): Father(V17.1, Z82.3) Status:Active Family history of congestive heart failure: Mother, Brother(V17.49, Z82.49) Status:Active Unknown Family Member Name Dates Details Family history of cerebrovas cular accident (CVA): Father(V17.1, Z82.3) Status:Active Family history of congestive heart failure: Mother, Brother(V17.49, Z82.49) Status:Active Unknown Family Member Name Dates Details Family history of cerebrovas cular accident (CVA): Father(V17.1, Z82.3) Status:Active Family history of congestive heart failure: Mother, Brother(V17.49, Z82.49) Status:Active Unknown Family Member Name Dates Details Family history of cerebrovas cular accident (CVA): Father(V17.1, Z82.3) Status:Active Family history of congestive heart failure: Mother, Brother(V17.49, Z82.49) Status:Active Unknown Family Member Name Dates Details Family history of cerebrovas cular accident (CVA): Father(V17.1, Z82.3) Status:Active Family history of congestive heart failure: Mother, Brother(V17.49, Z82.49) Status:Active Relationship Condition Age at Onset Recorded Date/T mia Not Specified Hypertension Unknown Diabetes mellitus Unknown Congestive heart failure Unknown brother Hypertension Unknown sister Hypertension Unknown brother Diabetes mellitus Unknown Unknown Family Member Name Dates Details Family history of cerebrovas cular accident (CVA): Father(V17.1, Z82.3) Status:Active Family history of congestive heart failure: Mother, Brother(V17.49, Z82.49) Status:Active Unknown Family Member Name Dates Details Family history of cerebrovas cular accident (CVA): Father(V17.1, Z82.3) Status:Active Family history of congestive heart failure: Mother, Brother(V17.49, Z82.49) Status:Active Unknown Family Member Name Dates Details Family history of cerebrovas cular accident (CVA): Father(V17.1, Z82.3) Status:Active Family history of congestive heart failure: Mother, Brother(V17.49, Z82.49) Status:Active Advance Directives No Advanced Directives Records Found Advance Directive Response Recorded Date/ Time Advance Directives No May 22, 2017 10:20am Chief Complaint JENAE KNAPP is being seen for an annual follow-up of.JENAE KNAPP is being seen for an annual follow-up of. Chief Complaint and Reason for Visit Chief Complaint dm djd Vomiting, Light Headed, Dehydrated Rash right flank pain, nausea n20.0 Chief Complaint n20.0 Medications Administered Section Inactive Administered Medications - up to 3 most recent administrations Medication Order MAR Action Action Date Dose Rate Site fluorescein-benoxinate 0.3-0.4 % 1 Drop (FLURESS) 1 Drop, BOTH EYES, DIRECTED, Starting on Mon03/07/23 at 1330, Until Mon03/08/23 at 0129, Administer for applanation tonometry. In the event of a Fluress shortage, administer Charity-Fluor 1 drop into both eyes as directed for applanation tonometry Given 03/07/2023 1:30 PM EST 1 Drop PHENYLephrine 2.5 % 1 Drop (AK-DILATE, TRACIE-SYNEPHRINE) 1 Drop, BOTH EYES, DIRECTED, Starting on Mon03/07/23 at 1330, Until Mon03/08/23 at 0129, Administer for dilation PROTECT FROM LIGHT Given 03/07/2023 1:30 PM EST 1 Drop tropicamide 1 % 1 Drop (MYDRIACYL) 1 Drop, BOTH EYES, DIRECTED, Starting on Mon03/07/23 at 1330, Until Mon03/08/23 at 0129, Administer for dilation Given 03/07/2023 1:30 PM EST 1 Drop Additional Source Comments (unrecognized sect ion and content) No Status Records FoundNo Status Records Found INFORMATION SOURCE (unrecogn ized section and content) DATE CREATED AUTHOR 10/17/2017 [facility] DATE CREATED AUTHOR AUTHOR'S ORGANIZ ATION 05/10/2019 [facility] DATE CREATED AUTHOR AUTHOR'S ORGANIZ ATION 08/25/2021 [facility] Special[facility] DATE CREATED AUTHOR AUTHOR'S ORGANIZ ATION 03/11/2022 [facility] DATE CREATED AUTHOR AUTHOR'S ORGANIZ ATION 03/12/2022 [facility] DATE CREATED AUTHOR AUTHOR'S ORGANIZ ATION 07/31/2022 [facility] DATE CREATED AUTHOR AUTHOR'S ORGANIZ ATION 03/09/2023 [facility] DATE CREATED AUTHOR AUTHOR'S ORGANIZ ATION 03/18/2023 [facility] DATE CREATED AUTHOR AUTHOR'S ORGANIZ ATION 03/24/2023 [facility] DATE CREATED AUTHOR AUTHOR'S ORGANIZ ATION 05/03/2023 [facility] d[facility] Specialists EPIC DATE CREATED AUTHOR AUTHOR'S ORGANIZ ATION 05/26/2023 [facility] DATE CREATED AUTHOR AUTHOR'S ORGANIZ ATION 09/29/2023 [facility] l Care Teams (unrecognized sec tion and content) Team Status: Active Member Role Status Dates Kaushik Payan , Primary Care Provider Active Team Status: Inactive Member Role Status Dates Kaushik Payan , Primary Care Provider Active Dat Torrez MD Attending Provider Active Team Status: Inactive Member Role Status Dates Kaushik Payan DO Primary Care Provider Active Julio C Carlisle , Emergency Provider Active Team Status: Inactive Member Role Status Dates Kaushik Payan , Primary Care Provider Active Virgil Hendrickson DO Emergency Provider Active Team Status: Inactive Member Role Status Dates Kaushik Payan , Primary Care Provider Active Demetrio Romero Jr, MD Emergency Provider Active Team Status: Inactive Member Role Status Dates Kaushik House , DO Primary Care Provider, Attending Adonay elmore Active Team Status: Inactive Member Role Status Dates Dat Torrez MD Attending Provider Active Kaushik Payan DO Primary Care Provider Active Protocol Officer Relationship Specialty Start Date End Date Mason Kaushik Elio, DO [address] [place] [id number] PCP - General 04/16/19 Goals (unrecognized section and content) Goals may be documented in a n alternate sectionGoals may be documented in an alternate sectionGoals may be documented in an alternate sectionGoals may be documented in an alternate section Source Comments (unrecognize d section and content) In the event this informatio n is protected by the Federal Confidentiality of Alcohol and Drug Abuse Patient Records regulations: The Federal rules restrict any use of the information to criminally investigate or prosecute any alcohol or drug abuse patient.[facility] Reason for Visit (unrecogniz ed section and content) Reason Comments Cataract Evaluation Reason Comments Annual Exam FOR RECORDS PERTAINING TO PATIENTS WHO ARE OR HAVE BEEN ENROLLED IN A CHEMICAL DEPENDENCY/SUBSTANCEABUSE PROGRAM, SOME INFORMATION MAY BE OMITTED. This clinical summary was aggregated from multiple sources. Caution should be exercised in using it in the provision of clinical care. This summary normalizes information from multiple sources, and as a consequence, information in this document may materially change the coding, format and clinical context of patient data. In addition, data may be omitted in some cases. CLINICAL DECISIONS SHOULD BE BASED ON THE PRIMARY CLINICAL RECORDS. [employer] provides no warranty or guarantee of the accuracy or completeness of information in this document.
== END 2023-09-30 07:26 | disposition home or self-care (01) ==
LOC: CT 07:25
PROVIDERS: PCP Family Medicine; Visit Provider Podiatrist Foot & Ankle Surgery
DX: M19.072 Primary osteoarthritis, left ankle and foot (principal)
CPT/HCPCS: 73700